=== PATIENT | female | born 1950 | race Caucasian/White ===

== ENCOUNTER 2018-05-28 06:00 | Inpatient (IN) ==
[2018-05-08 11:50] LABS: Basophils # (auto) 0.03 K/uL (0-0.2); Basophils % (auto) 0.3 %; Eosinophils # (auto) 0.39 K/uL (0-0.5); Eosinophils % (auto) 3.9 %; Hematocrit (blood only) 35.2 % (37-47); Hemoglobin 11.6 g/dL (12.0-16.0); Immature Granulocytes # (auto) 0.05 K/uL (0.00-0.02); Immature Granulocytes % (auto) 0.5 %; Lymphocytes # (auto) 1.83 K/uL (1.2-3.4); Lymphocytes % (auto) 18.1 %; Mean Corpuscular Volume 90.3 fL (80-100); Mean Platelet Volume 10.3 fL (7.4-10.4); Monocytes # (auto) 0.76 K/uL (0.11-0.59); Monocytes % (auto) 7.5 %; Neutrophils # (auto) 7.04 K/uL (1.4-6.5); Neutrophils % (auto) 69.7 %; Platelet Count 328 K/uL (130-400); RDW Coefficient of Variation 13.5 % (11.5-14.5); RDW Standard Deviation 44.7 fL (36.4-46.3)
--- NOTE | 2018-05-08 11:54 | PAT Medication Instructions ---
Medication Instructions Date of Service May 08, 2018 Home Medications alprazolam 1 - 2 tab PO BID NEEDED atorvastatin 20 mg PO QAM cranberry fruit concentrate [Azo] 2 tab PO QAM docusate sodium [Dulcolax] 2 tab PO QPM hydroxyzine HCl 1 - 2 tab PO HS NEEDED lisinopril-hydrochlorothiazide 1 tab PO QAM pantoprazole 40 mg PO BID venlafaxine 150 mg PO QAM STOP taking 2 weeks before surgery cranberry fruit concentrate [Azo] 2 tab PO QAM DO NOT take the morning of surgery lisinopril-hydrochlorothiazide 1 tab PO QAM Take morning of surgery With a small sip of water, OTHERWISE NOTHING TO EAT OR DRINK AFTER MIDNIGHT: alprazolam 1 - 2 tab PO BID NEEDED (stop 4 hours before surgery) atorvastatin 20 mg PO QAM pantoprazole 40 mg PO BID venlafaxine 150 mg PO QAM Take evening before surgery alprazolam 1 - 2 tab PO BID NEEDED docusate sodium [Dulcolax] 2 tab PO QPM hydroxyzine HCl 1 - 2 tab PO HS NEEDED pantoprazole 40 mg PO BID Other Notes If you have any questions please call us at [phone] or [phone] or [phone] or [phone]
--- NOTE | 2018-05-08 11:54 | Anesthesiology Consultation ---
Date of Service May 08, 2018 Assessment & Plan (1) Encounter for pre-operative examination: Chart Review Chart Review: Acceptable Risk for Surgery and Patient seen in Pre Admission Testing Consults Requested none Saw PCP on 04/20, who stated "There is no medical contraindication for the proposed surgery and anesthesia." K+ was pending at that time due to diuretic, but came back normal at our visit. Teaching & Discussion Pre-Anesthesia Teaching/Discussion Notes: Instructed NPO after midnight before surgery, except medications with 15 cc of water. Medication instructions provided according to the PAT guidelines. History Surgery Operation Date: 05/28/18 07:00 Proposed Procedures p Right Total Knee Arthroplasty - Vern Kunz MD Height/Weight Height: 5 ft 5 in Weight: 78.7 kg Allergies Allergy/AdvReac Type Severity Reaction Status Date / Time No Known Allergies Allergy Verified 05/04/18 10:40 Medications Home Medications Medication Instructions Recorded Confirmed Last Taken alprazolam 1 - 2 tab PO BID PRN 05/08/18 05/08/18 Unknown atorvastatin 20 mg PO QAM 05/08/18 05/08/18 Unknown cranberry fruit concentrate [Azo 2 tab PO QAM 05/08/18 05/08/18 Unknown Cranberry] docusate sodium [Dulcolax Stool 2 tab PO QPM 05/08/18 05/08/18 Unknown Softener (dss)] hydroxyzine HCl 1 - 2 tab PO HS PRN 05/08/18 05/08/18 Unknown lisinopril-hydrochlorothiazide 1 tab PO QAM 05/08/18 05/08/18 Unknown pantoprazole 40 mg PO BID 05/08/18 05/08/18 Unknown venlafaxine 150 mg PO QAM 05/08/18 05/08/18 Unknown Past Medical History Medical History Anxiety GERD (gastroesophageal reflux disease) Hyperlipidemia Hypertension Osteoarthritis Past Surgical History Surgical History History of arthroscopy RIGHT KNEE History of bladder suspension procedure AP REPAIR WITH BLADDER TACKING History of hysterectomy Past Anesthesia History No Hx of Anesthesia Complications and No Family Hx of Anesthesia Complications History of PONV No Motion Sickness Screening History of Motion Sickness: Yes Social History Smoking Status: Never smoker Do You Dip or Chew Tobacco: No Hx Alcohol Use: No Alcohol Intake Frequency Comment: 0 Hx Substance Use: No substance use type: does not use Exercise / Class Metabolic Activity II 4-5 Yardwork/Stairs/Walk up hill (Limited due to knee pain, but still tends to her house. Able to climb FOS. Denies SOB or CP. ) Review of Systems Patient denies chest pain, shortness of breath, dyspnea on exertion, cough, wheezing, palpitations. +joint pain +acid reflux (partially controlled by meds) Physical Exam Vital Signs BP: 123/76 P: 78 R: 16 T: 97.9 SPO2: 97% on RA ENMT Thyromental Distance: < 3.5 Finger Breadths (3) Mallampati Class: III Neck normal visual inspection and trachea midline Respiratory normal respiratory effort Auscultation: lungs clear to auscultation bilaterally Cardiovascular Rate/Rhythm: regular rate and regular rhythm Heart Sounds: no murmur Vessels: no carotid bruit Psychiatric Orientation: alert and oriented x 3 Testing Electrocardiogram Date: 05/08/18 Findings: + NSR @ (82) Sinus arrhythmia with 1st degree A-V block. RBBB. Left anterior fascicular block. Bifascicular block When compared to EKG from 07/12/17, 1st degree A-V block is now present. Otherwise, no significant change is present. Chest X-Ray Date: 05/08/18 Findings: + NAD FINDINGS: Atherosclerosis of the aortic arch. Cardiac silhouette normal in size. Lungs and pleural spaces clear. Mild to moderate dextrocurvature of the thoracic spine. Upper abdomen normal. IMPRESSION: 1. No acute cardiopulmonary disease. Laboratory Results 05/08/18 11:21 05/08/18 11:21 Blood Type A Positive 05/08/18 11:21 Antibody Screen NEGATIVE 05/08/18 11:21 PT 10.3 Seconds (9.0-12.0) 05/08/18 11:21 INR 1.0 (0.9-1.1) 05/08/18 11:21 APTT 24.7 Seconds (21.0-31.0) 05/08/18 11:21 Hemoglobin A1c 5.5 % (4.5-5.6) 05/08/18 11:21 Urine Color Yellow 05/08/18 Unknown Urine Appearance Clear (Clear) 05/08/18 Unknown Urine pH 5.0 (4.5-7.5) 05/08/18 Unknown Ur Specific [place] 1.019 (1.000-1.030) 05/08/18 Unknown Urine Protein Negative (Negative) 05/08/18 Unknown Urine Glucose (UA) Negative (Negative) 05/08/18 Unknown Urine Ketones Negative (Negative) 05/08/18 Unknown Urine Nitrite Negative (Negative) 05/08/18 Unknown Ur Leukocyte Esterase Negative (Negative) 05/08/18 Unknown 05/08/18 Unknown Urine Culture - Final Urine,Clean Catch No growth - less than 1,000 colonies/mL.
[2018-05-08 11:58] LABS: Partial Thromboplastin Time 24.7 Seconds (21.0-31.0); Prothrombin Time 10.3 Seconds (9.0-12.0)
[2018-05-08 12:28] LABS: Estimated Average Glucose 111 mg/dl
--- NOTE | 2018-05-08 12:49 | XRay Report ---
XR chest Pre-admission PA/Lat CLINICAL HISTORY: 68 years-old Female presenting with preoperative assessment. TECHNIQUE: PA and lateral views of the chest were obtained. COMPARISON: None. FINDINGS: Atherosclerosis of the aortic arch. Cardiac silhouette normal in size. Lungs and pleural spaces clear . Mild to moderate dextrocurvature of the thoracic spine. Upper abdomen normal. IMPRESSION: 1. No acute cardiopulmonary disease. Electronically signed by: Enrique Pacheco M.D. 05/08/2018 12:48 PM
[2018-05-08 13:04] LABS: Albumin Level 3.8 gm/dl (3.4-5.0); BUN Creatinine Ratio 38.4 (10-20); Calcium 9.1 mg/dl (8.5-10.1); Creatinine Clr Calc Pharmacy 74.4 ml/min; Est GFR (African American) 95.8; Est GFR (Non-African American) 82.7; Potassium 4.1 mmol/L (3.5-5.1)
[2018-05-08 13:20] LABS: Appearance Urine Clear (Clear); Bilirubin Urine Negative (Negative); Color Urine Yellow; Glucose Urine UA Negative (Negative); Ketones Urine Negative (Negative); Leukocyte Esterase Urine Negative (Negative); Nitrite Urine Negative (Negative); Protein Urine Negative (Negative); Specific Gravity Urine 1.019 (1.000-1.030); Urobilinogen Urine Negative (Negative)
--- NOTE | 2018-05-27 13:08 | History and Physical Report ---
DATE OF ADMISSION: 05/28/2018 CHIEF COMPLAINT: Right knee pain. HISTORY OF PRESENT ILLNESS: The patient is a 68-year-old female with known osteoarthritis about her right knee. She has had several previous corticosteroid injections. She continues to have pain and disability with activities of daily living and now desires to proceed with right total knee arthroplasty. PAST MEDICAL HISTORY: Hypertension, hypercholesterolemia, depression, kidney stones, acid reflux. PAST SURGICAL HISTORY: Right knee arthroscopy, bladder surgery, hysterectomy, D and C x2. MEDICATIONS: Xanax 0.5 mg daily p.r.n. anxiety, atorvastatin 20 mg daily, Protonix 40 mg daily, lisinopril/HCTZ 20/12.5 daily, hydroxyzine HCl 25 mg 4 times daily, Effexor XR 150 mg daily. ALLERGIES: No known drug allergies. SOCIAL HISTORY AND REVIEW OF SYSTEMS: Noncontributory. PHYSICAL EXAMINATION: GENERAL: Well-nourished, well-developed elderly female who appears her stated age. HEENT: Normocephalic, atraumatic, extraocular movements intact, oropharynx pink and moist. NECK: Supple without adenopathy. LUNGS: Clear to auscultation bilaterally. HEART: Regular rate and rhythm. ABDOMEN: Soft, nontender, nondistended. EXTREMITIES: The upper extremities are within normal limits. The right knee has a slight valgus alignment. She complains primarily lateral compartment pain. Her range of motion is approximately 0-120 degrees. X-RAYS: X-rays were reviewed. She has a slight valgus aligned knee. She has near bone on bone arthritis of the lateral compartment with complete loss of the joint space. ASSESSMENT: Right knee degenerative joint disease. PLAN: Risks versus benefits were discussed, consent was obtained. The patient's primary care physician is Dr. Powers from [place]. Will proceed with right total knee arthroplasty as indicated.
[~2018-05-28 06:00] MED LIST: ACETAMINOPHEN 500 MG TAB PO SCH; CEFAZOLIN 1000MG 1,000 MG/7.5 ML SYR IV SCH; CEFAZOLIN 2000MG 2,000 MG/15 ML SYR IV SCH; CeleBREX 200 MG CAP PO SCH; FAMOTIDINE 20 MG TAB PO SCH; GABAPENTIN 300 MG PO SCH; METOCLOPRAMIDE HCL 10 MG TABLET PO SCH; OXYCODONE HCL 10 MG TABCR (OXYCONTIN) PO SCH; ROPIVACAINE 0.5% HCL/PF 150 MG, BUPIVACAINE 0.5% MPF 30 ML, EPINEPHrine 30MG/30ML (OR U... INFIL SCH; TRANEXAMIC ACID 1,000 MG **IV Pre-op IV SCH; dexAMETHasone 4 MG TAB PO SCH
[2018-05-28] MEDS ORDERED: ROPIVACAINE 0.5% 5 MG/ML 30 ML VIAL ONE (06:24)
[2018-05-28] MEDS ORDERED: BUPIVACAINE 0.5 % 5 MG/1 ML PF 10ML VIAL ONE (06:24)
[2018-05-28] MEDS ORDERED: EPINEPHrine INJ 1 MG/ML AMP ONE (06:25)
[2018-05-28] MEDS ORDERED: TRANEXAMIC ACID 1,000 MG **IV Intra-op IV SCH (06:30)
[2018-05-28] MEDS: LR 500ML BOLUS, THEN 15ML/HR IV SCH ×2 (06:36→16:59)
[2018-05-28] MEDS ORDERED: ORTHO JOINT ANESTHETIC ONE (07:02)
[2018-05-28] MEDS ORDERED: BACITRACIN INJ 50,000 UNIT VIAL ONE (07:02)
[2018-05-28] MEDS ORDERED: POVIDONE-IODINE OP SOLN 30 ML BTL ONE (07:02)
--- NOTE | 2018-05-28 07:02 | History & Physical Bridge Note ---
Date of Service May 28, 2018 History & Physical Bridge Note I have examined the patient, reviewed the History & Physical and in the interval since the performance of the History & Physical I have noted the following changes of clinical significance: no changes noted
[2018-05-28] MEDS ORDERED: MIDAZOLAM HCL 1 MG/ML 2ML VIAL ONE (07:21)
[2018-05-28] MEDS ORDERED: LABETALOL HCL IV 5 MG/ML 20ML IV PRN (07:30)
[2018-05-28] MEDS ORDERED: PHENYLEPHRINE 100MCG/ML 5ML SYR IV PRN (07:30)
[2018-05-28] MEDS ORDERED: MEPERIDINE HCL 25 MG/ML CARP IV PRN (07:30)
[2018-05-28] MEDS ORDERED: fentaNYL citrate 100 MCG/2 ML VIAL IV PRN (07:30)
[2018-05-28] MEDS ORDERED: HYDROmorphone INJ 1 MG/ML SYRINGE IV PRN (07:30)
[2018-05-28] MEDS ORDERED: ATROPINE SULFATE 0.1 MG/ML 5ML SYR IV PRN (07:30)
[2018-05-28] MEDS ORDERED: ONDANSETRON INJ 2 MG/ML 2 ML VIAL IV PRN ×2 (07:30→10:53)
[2018-05-28] MEDS ORDERED: ePHEDrine sulfate 50 MG/ML AMP IV PRN (07:30)
--- NOTE | 2018-05-28 09:15 | Operative Report ---
Post Operative Report Date of Surgery May 28, 2018 Pre & Post Diagnosis Operation Date: 05/28/18 08:20 Pre-Op Diagnosis: RIGHT KNEE OSTEOARTHRITIS Post-Op Diagnosis: RIGHT KNEE OSTEOARTHRITIS Procedure Operation Date: 05/28/18 08:20 Actual Procedures p Right Total Knee Arthroplasty(Right) - Vern Kunz MD Surgeon Vern Kunz MD Signal Inspector nacho Estimated Blood Loss 10 Findings Consistent with Post-Op Diagnosis Specimens Bone fragments Anesthesia Type Spinal Complications none Disposition Accompanied Patient To Recovery: No Disposition: Recovery Room Indications Knee pain Description of Procedure Patient's right leg was prepped and draped in usual sterile manner. The limb was exsanguinated with an Esmarch bandage and tourniquet inflated to 300 mils of mercury. Longitudinal incision was made over the knee. Changes tissue was sharply dissected electrocautery used for hemostasis. A medium parapatellar incision was made the patella was everted and the fat was removed It was removed and the medial face of the tibia was cleared of soft tissue using the Bovie and a Conner elevator. Proximal to the osteotomy was carried out using the intramedullary guide bone fragment was removed. Attention was turned to the femur where a drill was used to get access to the femoral canal. Distal femoral cut was made with an 8 mm cut. Size 3 femur was chosen size to be used in the anterior shift was utilized and the distal femoral chamfer cuts were made. These bone fragments were removed and the notch was cut using the appropriate guide. Lamina grain trader was used to gain access to the posterior elements of the knee and the remnants were removed as well as the remnants of the the lamina grain trader was removed trial femur was impacted in position in the drill for the pegs was brought osteotome was used to present the tibia where a size 3 tibial component was chosen size to be used. The tibial baseplate was placed and was well aligned and the preparation for the stem was carried out using the drill and punch. Trial reduction was carried out and a size 11 poly- was chosen size to be used. The was able to be brought to full extension with good collateral stability. The patella was reamed using the patellar reamer and the patella drill was used to prepare the holes for the pegs. Trial 36 patella was chosen. All trials were removed the knee was thoroughly irrigated joint mix was injected and the final components were cemented into position. [place] help in position of extension while cement hardened after removal of excess cement. Following cementation Betadine soap was utilized the remainder of the periarticular joint mix was injected the knee was finally irrigated with pulsatile irrigation and closed in layers #1 Vicryl was used to close the extensor mechanism tense tissue was closed using 0 Dexon skin was closed with 0 plain. Sterile dressing of Adaptic 4 x 4's sterile Webril umbilicus applied. A Conner was utilized to a portion of the case including positioning prepping draping surgical systems wound closure and dressing application. I attest to the content of the Intraoperative Record and any orders documented therein. Any exceptions are noted below.
[2018-05-28] MEDS ORDERED: PROPOFOL IV EMULSION 10 MG/ML 20 ML VIAL IV ONE (09:21)
--- NOTE | 2018-05-28 10:10 | Anesthesiology Progress Note ---
Date of Service May 28, 2018 Anesthesia Post Procedure Vital Signs Vital Signs: Temp Pulse Pulse Resp BP Pulse Ox 05/28/18 10:00 71 16 104/54 L 100 05/28/18 09:53 36.6 C 82 16 119/81 100 05/28/18 06:20 36.9 C 74 20 128/68 99 Pain Intensity Right Knee: Pain Intensity: 4 Notes Mental Status: alert / awake / arousable Patient Amnestic to Procedure: Yes Nausea / Vomiting: adequately controlled Pain: adequately controlled Airway Patency, RR, SpO2: stable & adequate BP & HR: stable & adequate Hydration State: stable & adequate Neuraxial Anesthesia: was administered and sensory block is resolving Anesthetic Complications: no major complications apparent and Pt Satisfied with anesthetic care
--- NOTE | 2018-05-28 10:22 | XRay Report ---
XR knee RT 2V routine HISTORY: 68 years-old Female post-op TKA right knee total joint arthroplasty. History of degenerativ e joint disease. COMPARISON: None available TECHNIQUE: 2 views of the right knee FINDINGS: Right knee total joint arthroplasty with patellar resurfacing. Alignment is satisfactory. Expected po stsurgical soft tissue swelling with deep tissue air and surgical drainage catheter. No acute fractur e or retained foreign body. IMPRESSION: Right knee total joint arthroplasty and patella resurfacing with satisfactory alignment. The above report was generated using voice recognition software. It may contain grammatical, syntax o r spelling errors. Electronically signed by: Adonay Cordon M.D. 05/28/2018 10:21 AM
[2018-05-28] MEDS ORDERED: ALUMINUM/MAGNESIUM SUSP 30 ML UDC PO PRN (10:53)
[2018-05-28] MEDS ORDERED: METOCLOPRAMIDE HCL INJ 5 MG/ML 2 ML VIAL IV PRN (10:53)
[2018-05-28] MEDS ORDERED: MAGNESIUM HYDROXIDE SUSP 30 ML UDC PO PRN (10:53)
[2018-05-28] MEDS: FERROUS GLUCONATE 324 MG TAB PO SCH ×2 (12:20→17:47)
[2018-05-28] MEDS: KETOROLAC TROMETHAMINE 15 MG/ML VIAL IV SCH ×2 (12:20→17:48)
[2018-05-28] MEDS: SODIUM CHLORIDE 0.9% 1000ML 1,000 ML IV SCH ×2 (13:22→22:10)
[2018-05-28] MEDS: ACETAMINOPHEN 500 MG TAB PO SCH ×2 (14:32→22:11)
[2018-05-28] MEDS: CEFAZOLIN 2000MG 2,000 MG/15 ML SYR IV SCH (16:33)
[2018-05-28] MEDS: OXYCODONE HCL IR 5 MG TAB (IMMEDIATE RELEASE) PO PRN ×2 (17:52→21:27)
[2018-05-28] MEDS: DOCUSATE SODIUM 100 MG CAP PO SCH (21:26)
[2018-05-28] MEDS: ASPIRIN 81 MG ECTAB PO SCH (21:26)
[2018-05-28] MEDS: PANTOprazole 40 MG TAB PO SCH (21:26)
[2018-05-29] MEDS: KETOROLAC TROMETHAMINE 15 MG/ML VIAL IV SCH ×2 (00:07→06:06)
[2018-05-29] MEDS: CEFAZOLIN 2000MG 2,000 MG/15 ML SYR IV SCH (00:08)
[2018-05-29] MEDS: ACETAMINOPHEN 500 MG TAB PO SCH ×3 (06:12→22:16)
[2018-05-29 06:40] LABS: Hemoglobin 9.6 g/dL (12.0-16.0); Mean Platelet Volume 9.7 fL (7.4-10.4); Platelet Count 352 K/uL (130-400); RDW Coefficient of Variation 13.2 % (11.5-14.5); RDW Standard Deviation 42.8 fL (36.4-46.3); Red Blood Count 3.37 M/uL (4.2-5.4); White Blood Count 18.73 K/uL (4.8-10.8)
[2018-05-29 07:18] LABS: BUN Creatinine Ratio 24.4 (10-20); Calcium 7.9 mg/dl (8.5-10.1); Creatinine Clr Calc Pharmacy 57.1 ml/min; Est GFR (African American) 68.2; Est GFR (Non-African American) 58.9
--- NOTE | 2018-05-29 07:42 | Anesthesiology Progress Note ---
Date of Service May 29, 2018 Anesthesia Post Procedure Vital Signs Vital Signs: Temp Pulse Pulse Resp BP Pulse Ox 05/29/18 03:28 36.7 C 75 16 99/63 L 96 05/28/18 23:05 36.6 C 78 16 108/66 95 05/28/18 19:51 36.8 C 80 18 110/69 96 05/28/18 16:03 36.9 C 70 18 104/64 97 05/28/18 13:45 36.5 C 71 15 107/65 96 05/28/18 12:41 36.7 C 77 18 113/73 98 05/28/18 11:12 36.5 C 72 17 118/73 97 05/28/18 10:45 36.5 C 72 15 111/74 97 05/28/18 10:30 72 16 102/60 98 05/28/18 10:20 71 16 99/59 L 98 05/28/18 10:10 36.5 C 70 16 100/54 L 98 05/28/18 10:00 71 16 104/54 L 100 05/28/18 09:53 36.6 C 82 16 119/81 100 Pain Intensity Right Knee: Pain Intensity: 5 Notes Mental Status: alert / awake / arousable and participated in evaluation Patient Amnestic to Procedure: Yes Nausea / Vomiting: adequately controlled Pain: adequately controlled Airway Patency, RR, SpO2: stable & adequate BP & HR: stable & adequate Hydration State: stable & adequate Neuraxial Anesthesia: was administered and sensory block resolved Anesthetic Complications: no major complications apparent
[2018-05-29] MEDS ORDERED: dexAMETHasone 10 MG in SYRINGE 0 ML IV SCH (08:00)
[2018-05-29] MEDS: FERROUS GLUCONATE 324 MG TAB PO SCH ×3 (08:27→17:03)
[2018-05-29] MEDS: DOCUSATE SODIUM 100 MG CAP PO SCH ×2 (08:28→20:38)
[2018-05-29] MEDS: MULTIVITAMIN TAB PO SCH (08:28)
[2018-05-29] MEDS: VENLAFAXINE HCL XR 150 MG CAPXR PO SCH (08:28)
[2018-05-29] MEDS: ASPIRIN 81 MG ECTAB PO SCH ×2 (08:28→20:38)
[2018-05-29] MEDS: ATORVASTATIN 20 MG TAB PO SCH (08:29)
[2018-05-29] MEDS: PANTOprazole 40 MG TAB PO SCH ×2 (08:29→20:38)
[2018-05-29] MEDS: LISINOPRIL/HCTZ 20/12.5MG 1 TAB TAB PO SCH (08:32)
[2018-05-29] MEDS: OXYCODONE HCL IR 5 MG TAB (IMMEDIATE RELEASE) PO PRN ×4 (08:35→21:09)
[2018-05-29] MEDS: MoRPHine SULFATE 2 MG/ML CARP IV PRN ×3 (15:17→22:40)
[2018-05-29] MEDS: CeleBREX 200 MG CAP PO SCH (20:38)
[2018-05-30] MEDS: OXYCODONE HCL IR 5 MG TAB (IMMEDIATE RELEASE) PO PRN ×5 (01:44→22:34)
--- NOTE | 2018-05-30 02:36 | Operative Report ---
DATE OF OPERATION: 05/29/2018 CHIEF COMPLAINT: Right knee pain. The patient is status post right knee replacement done yesterday. She is complaining of very little discomfort, was able to participate in physical therapy today. PHYSICAL EXAMINATION: Reveals dressing to be intact. Hemovac drain in place. Minimal drainage. LABORATORY DATA: Hemoglobin 9.6. ASSESSMENT: Total knee, doing well. PLAN: Remove drain tonight, dressing change tomorrow. One physical therapy session tomorrow and then discharge. I attest to the content of the Intraoperative Record and any orders documented therein. Any exception s are noted below.
[2018-05-30] MEDS: ACETAMINOPHEN 500 MG TAB PO SCH ×3 (06:14→22:29)
--- NOTE | 2018-05-30 07:39 | Orthopedic Progress Note ---
Date of Service May 30, 2018 Assessment & Plan (1) S/P total knee arthroplasty: POD#2 Rt TKA -Pain management -DVT prophylaxis -PT/OT -Hgb yesterday 9.6. Patient feeling a little unsteady on her feet, will check cbc this AM -D/C planning-home with home health, possibly later today if feeling better and PT goes well. Subjective Patient resting comfortably in bed. Had a lot of pain overnight, states this is improving. Feels unsteady on her feet. Hgb yesterday 9.6. Will check CBC this am. Denies chest pain, sob, calf pain. Physical Exam 2 Vital Signs (Past 24 Hours): Last Vital Signs Temp 36.4 C L 05/30/18 06:51 Pulse 70 05/30/18 06:51 Resp 18 05/30/18 06:51 BP 121/71 05/30/18 06:51 Pulse Ox 97 05/30/18 06:51 Physical Exam: Dressing c/d/i, drain has been removed. No calf tenderness. Toes mobile, sensation intact. Results & Data Laboratory Results H & H 05/08/18 05/29/18 Range/Units 11:21 06:26 Hgb 11.6 L 9.6 L (12.0-16.0) g/dL Hct 35.2 L 30.0 L (37-47) % Coagulation 05/08/18 Range/Units 11:21 INR 1.0 (0.9-1.1)
[2018-05-30 07:45] LABS: Basophils # (auto) 0.02 K/uL (0-0.2); Basophils % (auto) 0.1 %; Eosinophils # (auto) 0.03 K/uL (0-0.5); Eosinophils % (auto) 0.2 %; Hematocrit (blood only) 29.3 % (37-47); Hemoglobin 9.6 g/dL (12.0-16.0); Immature Granulocytes % (auto) 0.7 %; Lymphocytes # (auto) 2.34 K/uL (1.2-3.4); Lymphocytes % (auto) 16.9 %; Mean Corpuscular Volume 89.1 fL (80-100); Mean Platelet Volume 9.6 fL (7.4-10.4); Monocytes # (auto) 1.56 K/uL (0.11-0.59); Monocytes % (auto) 11.3 %; Neutrophils % (auto) 70.8 %; Platelet Count 343 K/uL (130-400); RDW Coefficient of Variation 13.6 % (11.5-14.5); RDW Standard Deviation 44.2 fL (36.4-46.3); Red Blood Count 3.29 M/uL (4.2-5.4); White Blood Count 13.85 K/uL (4.8-10.8)
[2018-05-30 07:47] LABS: Mean Corpuscular Hgb Conc 32.8 g/dL (32-36)
[2018-05-30] MEDS: PANTOprazole 40 MG TAB PO SCH ×2 (09:13→20:30)
[2018-05-30] MEDS: DOCUSATE SODIUM 100 MG CAP PO SCH ×2 (09:13→20:30)
[2018-05-30] MEDS: ASPIRIN 81 MG ECTAB PO SCH ×2 (09:13→20:30)
[2018-05-30] MEDS: FERROUS GLUCONATE 324 MG TAB PO SCH ×3 (09:13→18:06)
[2018-05-30] MEDS: MULTIVITAMIN TAB PO SCH (09:13)
[2018-05-30] MEDS: VENLAFAXINE HCL XR 150 MG CAPXR PO SCH (09:14)
[2018-05-30] MEDS: CeleBREX 200 MG CAP PO SCH ×2 (09:14→20:30)
[2018-05-30] MEDS: ATORVASTATIN 20 MG TAB PO SCH (09:15)
[2018-05-30] MEDS: LISINOPRIL/HCTZ 20/12.5MG 1 TAB TAB PO SCH (09:15)
[2018-05-30] MEDS: MoRPHine SULFATE 2 MG/ML CARP IV PRN (13:19)
[2018-05-31] MEDS: MoRPHine SULFATE 2 MG/ML CARP IV PRN (00:04)
[2018-05-31] MEDS: ACETAMINOPHEN 500 MG TAB PO SCH (06:15)
[2018-05-31] MEDS: MULTIVITAMIN TAB PO SCH (07:44)
[2018-05-31] MEDS: FERROUS GLUCONATE 324 MG TAB PO SCH ×2 (07:44→12:57)
[2018-05-31] MEDS: ATORVASTATIN 20 MG TAB PO SCH (07:44)
[2018-05-31] MEDS: DOCUSATE SODIUM 100 MG CAP PO SCH (07:44)
[2018-05-31] MEDS: ASPIRIN 81 MG ECTAB PO SCH (07:45)
[2018-05-31] MEDS: PANTOprazole 40 MG TAB PO SCH (07:45)
[2018-05-31] MEDS: VENLAFAXINE HCL XR 150 MG CAPXR PO SCH (07:45)
[2018-05-31] MEDS: CeleBREX 200 MG CAP PO SCH (07:45)
--- NOTE | 2018-05-31 07:45 | Orthopedic Progress Note ---
Date of Service May 31, 2018 Assessment & Plan (1) S/P total knee arthroplasty: POD#3 Rt TKA -Pain management -DVT prophylaxis -PT/OT -Hgb yesterday 9.6. Patient feeling much better today than yesterday. -D/C planning-home with home health after PT today. Subjective Patient sitting comfortably in bedside chair. Had a lot of pain yesterday and felt unsteady on her feet. Hgb yesterday 9.6. She is feeling much better this morning. No complaints. Denies chest pain, sob, calf pain. Physical Exam 2 Vital Signs (Past 24 Hours): Last Vital Signs Temp 36.5 C 05/31/18 06:14 Pulse 76 05/31/18 06:14 Resp 16 05/31/18 06:14 BP 105/60 05/31/18 06:14 Pulse Ox 95 05/31/18 06:14 Physical Exam: Dressing c/d/i, toes mobile, sensation intact. N/V intact. No calf tenderness
[2018-05-31] MEDS: LISINOPRIL/HCTZ 20/12.5MG 1 TAB TAB PO SCH (07:48)
[2018-05-31] MEDS: OXYCODONE HCL IR 5 MG TAB (IMMEDIATE RELEASE) PO PRN ×2 (07:50→12:58)
--- NOTE | 2018-06-10 09:04 | Discharge Summary ---
CHIEF COMPLAINT: Right knee pain. Please see complete history and physical examination. HOSPITAL COURSE: The patient underwent right total knee arthroplasty without complication. She tolerated the procedure well and was discharged to the recovery room in stable condition. Her postoperative course was relatively uneventful. Her postoperative pain was reasonably well controlled with a combination of spinal anesthesia, adductor canal block, intraoperative joint injection, IV, and oral pain medications. She was started on aspirin for DVT prophylaxis. She also utilized BARBARA stockings and SCDs for additional prophylaxis. Her H&H was stable and did not require transfusion. Her surgical drain and dressing were discontinued on postoperative day 2, a new postop dressing was applied which will remain in place for approximately 7 days postoperative. She tolerated postoperative physical therapy reasonably well where she was ambulating and bending her knee appropriately. She was discharged home on postop day #3. She will continue her physical therapy at home. She will continue her aspirin for DVT prophylaxis and follow up in our office in approximately 10-14 days for her initial postop evaluation.
--- NOTE | 2018-06-19 10:57 | Operative Report ---
DATE OF OPERATION: 05/28/2018 PREOPERATIVE DIAGNOSIS: Osteoarthritis, right knee. POSTOPERATIVE DIAGNOSIS: Osteoarthritis, right knee. PROCEDURE: Right total knee arthroplasty. SURGEON: Vern Kunz MD MODEL TECHNICIAN: Derick Joseph PA-C. Mr. Joseph was utilized for all portions of the case including positioning, prepping, draping, surgical assistance, wound closure and dressing application. ANESTHESIA: Spinal. COMPLICATIONS: None. SPECIMENS: Femoral size 3, tibia size 3, tibial poly 11, patella 36. CONDITION: Recovery room stable. OPERATION AND FINDINGS: Following induction of spinal anesthesia, the patient's right leg was prepped and draped in the usual sterile manner. Limb was exsanguinated with an Esmarch bandage and tourniquet was inflated to 350 mmHg. A longitudinal incision was made anteriorly. Subcutaneous tissue was sharply dissected. Electrocautery was used for hemostasis. Prepatellar bursa was incised and median parapatellar incision was performed. Patella was everted and the knee was flexed. Fat pad was removed to aid in visualization and the anterior and posterior cruciate ligaments were removed. The medial face of the tibia was cleared of soft tissue first with a Bovie and a Conner elevator. This tissue was retracted posteriorly using a blunt Hohmann. A Samano retractor was used to expose the synovium above on the anterior aspect of the femur and this was removed down to bone. The PSI guide was placed on the distal femur and two pins were placed anteriorly and kept in position and two additional pins were placed distally and removed. The distal femoral cutting block was placed in position and the distal femoral cut was used in the +0 setting. Next, the cutting block was removed and the femoral 3 block was placed in the distal end of the femur. Care was taken to ensure appropriate external rotation and feeler gauge was used to ensure no notching would occur. The femoral block was centered on the distal femur and in the medial and lateral direction and was fixed using two bone screws. The gold pins were then removed. The oscillating saw was used to create the bone cuts and the distal femoral cutting block was removed and the reciprocating saw was used to further trim the femoral cuts as well as a deep in the area for the trochlear groove. Next, posterior condyle remnants were removed. Following this, a meniscal clamp and knife were utilized to remove the anterior portion of both medial and lateral meniscus. The proximal tibia PSI guide was placed into position and the proximal tibial cutting guide was screwed into position. The extra medullary alignment guide was utilized to ensure appropriate alignment. The proximal tibia was cut and the proximal tibial cutting block was removed and this bone fragment was removed. The appropriate guide was used to perform the notch cut on the distal femur and a lamina airport planner and a cochlear knife were utilized to finish both medial and lateral meniscectomies to remove any remnants of the posterior or anterior cruciate ligaments. Following this, the distal femoral component was impacted into position and blunt Brenda was used to sublux the tibia anteriorly. The proximal tibia was sized and a 3 tibial tray was chosen as the size to be used. This was put into position and appropriate external rotation and a double check with extramedullary alignment guide was performed. The canal for the tibial stem was prepared first with a 17 mm drill and then the punch and a mallet and the trial tibial poly was placed. An 11 was chosen the size to be used. It was brought to extension and the patella was prepared with the patellar reamer. A 36 component was chosen the size to be used. The trial component was placed and knee was taken through a full range of motion and there was found to be no lateral subluxation of the tibia. No lateral release was required. The trials were all removed. The final components were obtained and assembled. Cement was mixed. The knee was thoroughly irrigated and the ortho mix was injected about the knee joint. The final components were cemented into position. After thoroughly suctioning and drying the bone ends, all excess cement was removed. The knee was held in extension while the cement hardened. The wound was irrigated and closed over a Hemovac drain. #1 Vicryl was used to close the extensor mechanism. Subcutaneous tissues closed using 0 Dexon. Skin was closed with tom. Sterile dressing of Adaptic, 4 x 4's, sterile Webril, and [place] was applied. The patient tolerated the procedure well. Due to the complex nature of the procedure, the entire surgery was performed with the operational assistance of Derick Joseph PA-C. The physician assistant, under direct supervision, was involved in the actual performance of all aspects of the surgical procedure including hemostasis, tissue retraction and incision, instrument management, patient positioning, and wound closure. I attest to the content of the Intraoperative Record and any orders documented therein. Any exception s are noted below.
== END 2018-05-31 13:59 | disposition home health service (06) | DRG 470 ==
LOC: ASU 06:00 → 3E 10:01

== ENCOUNTER 2022-03-13 05:15 | Observation (INO) ==
--- NOTE | 2022-02-11 15:41 | PAT Medication Instructions ---
Medication Instructions Date of Service February 11, 2022 Home Medications Medication Instructions Recorded acetaminophen 500 mg capsule 1,000 mg PO Q8H pain #60 caps 05/30/18 alprazolam 0.25 mg tablet 1 - 2 tab PO BID PRN atorvastatin 20 mg tablet 20 mg PO QAM cranberry fruit concentrate 250 mg chewable tablet (Azo Cranberry) 2 tab PO QAM docusate sodium 100 mg capsule (Dulcolax Stool Softener (docusate)) 2 tab PO QPM hydroxyzine HCl 25 mg tablet 1 - 2 tab PO HS PRN lisinopril 20 mg-hydrochlorothiazide 12.5 mg tablet 1 tab PO QAM pantoprazole 40 mg tablet,delayed release 40 mg PO BID venlafaxine 150 mg tablet,extended release 24 hr 150 mg PO QAM acetaminophen 500 mg capsule 1,000 mg PO Q8H anastrozole 1 mg tablet 1 mg PO QAM cholecalciferol (vitamin D3) 50 mcg (2,000 unit) capsule (Vitamin D3) 100 mcg PO QAM ASK your prescriber and surgeon anastrozole 1 mg tablet 1 mg PO QAM STOP taking 2 weeks before surgery cranberry fruit concentrate 250 mg chewable tablet (Azo Cranberry) 2 tab PO QAM DO NOT take the morning of surgery lisinopril 20 mg-hydrochlorothiazide 12.5 mg tablet 1 tab PO QAM cholecalciferol (vitamin D3) 50 mcg (2,000 unit) capsule (Vitamin D3) 100 mcg PO QAM Take morning of surgery With a small sip of water, OTHERWISE NOTHING TO EAT OR DRINK AFTER MIDNIGHT: alprazolam 0.25 mg tablet 1 - 2 tab PO BID PRN(if needed) atorvastatin 20 mg tablet 20 mg PO QAM pantoprazole 40 mg tablet,delayed release 40 mg PO BID venlafaxine 150 mg tablet,extended release 24 hr 150 mg PO QAM acetaminophen 500 mg capsule 1,000 mg PO Q8H Take evening before surgery alprazolam 0.25 mg tablet 1 - 2 tab PO BID PRN(if needed) docusate sodium 100 mg capsule (Dulcolax Stool Softener (docusate)) 2 tab PO QPM hydroxyzine HCl 25 mg tablet 1 - 2 tab PO HS PRN(if needed) pantoprazole 40 mg tablet,delayed release 40 mg PO BID acetaminophen 500 mg capsule 1,000 mg PO Q8H Other Notes If you have any questions please call us at [phone] or [phone] or [phone] or [phone]
--- NOTE | 2022-02-13 13:50 | Anesthesiology Consultation ---
Date of Service February 13, 2022 Assessment & Plan (1) Encounter for pre-operative examination: Plan - will attempt to obtain most recent cardiology office note and pacemaker report. - cardiology clearance letter 02/05/22: "...low to moderate risk..." - pacemaker: William. - R TKA 05/28/18: SAB L3-L4 1 attempt + PNB. Chart Review Chart Review: Pending: Refer to Additional Notes / Consult section and Patient seen in Pre Admission Testing Teaching & Discussion Pre-Anesthesia Teaching/Discussion Notes: Instructed NPO after midnight before surgery, except medications with 15 cc of water. Medication instructions provided according to the PAT guidelines. History Surgery Operation Date: 03/13/22 07:15 Proposed Procedures p Left Total Knee Arthroplasty - Moises Posey MD Height/Weight Height: 5 ft 4 in Weight: 70.3 kg Allergies Allergy/AdvReac Type Severity Reaction Status Date / Time No Known Allergies Allergy Verified 02/11/22 11:38 Medications Home Medications Medication Instructions Recorded Confirmed Last Taken alprazolam 0.25 mg tablet 1 - 2 tab PO BID PRN Anxiety 05/08/18 02/11/22 05/27/18 12:00 atorvastatin 20 mg tablet 20 mg PO QAM 05/08/18 02/11/22 05/28/18 04:00 cranberry fruit concentrate 250 mg 2 tab PO QAM 05/08/18 02/11/22 05/14/18 chewable tablet (Azo Cranberry) docusate sodium 100 mg capsule 2 tab PO QPM 05/08/18 02/11/22 05/27/18 20:00 (Dulcolax Stool Softener (docusate)) hydroxyzine HCl 25 mg tablet 1 - 2 tab PO HS PRN Sleep 05/08/18 02/11/22 05/27/18 20:00 lisinopril 20 1 tab PO QAM 05/08/18 02/11/22 05/27/18 08:00 mg-hydrochlorothiazide 12.5 mg tablet pantoprazole 40 mg tablet,delayed 40 mg PO BID 05/08/18 02/11/22 05/28/18 04:00 release venlafaxine 150 mg tablet,extended 150 mg PO QAM 05/08/18 02/11/22 05/28/18 04:00 release 24 hr acetaminophen 500 mg capsule 1,000 mg PO Q8H pain #60 caps 05/30/18 02/11/22 Unknown anastrozole 1 mg tablet 1 mg PO QAM 02/11/22 02/11/22 Unknown cholecalciferol (vitamin D3) 50 100 mcg PO QAM 02/11/22 02/11/22 Unknown mcg (2,000 unit) capsule (Vitamin D3) Past Medical History Medical History (Updated 02/13/22 @ 16:26 by Shonda Edwards PA-C) Anxiety Cancer LEFT BREAST-04/2021-no limb restriction Depression GERD (gastroesophageal reflux disease) controlled, stable per pt Hyperlipidemia Hypertension controlled, stable per pt Kidney stones Pacemaker William, PLACED 07/2020-F/U DR GAVIRIA Scoliosis Patient denies h/o stroke, seizures, heart attack, heart failure, DM, blood clots or blood transfusions. Exercise / Class Metabolic Activity III < 4 Walking/Shop/Light housework (denies CP or SOB with usual activities, only has 6 steps in home) Past Family History Family History Other No known health problems Past Surgical History Surgical History (Updated 02/13/22 @ 14:05 by Shonda Edwards PA-C) Cardiac pacemaker William History of arthroscopy RIGHT KNEE History of bladder suspension procedure AP REPAIR WITH BLADDER TACKING History of cardiac cath 2020 PH [place]-NO STENTS History of colonoscopy History of esophagogastroduodenoscopy (EGD) History of herniorrhaphy 04/2020 History of hysterectomy History of lithotripsy History of lumpectomy of left breast NO CHEMO/NO RADIATION-NO ARM RESTRICTION History of total knee replacement RIGHT-05/28/2018: L3-L4 1 attempt + PNB. Past Anesthesia History No Hx of Anesthesia Complications and No Family Hx of Anesthesia Complications History of PONV No Hx of PONV and No Hx of Motion Sickness Social History Smoking Status: Never smoker Do You Dip or Chew Tobacco: No Hx Alcohol Use: No Hx Substance Use: No substance use type: does not use Review of Systems Patient denies chest pain, shortness of breath, dyspnea on exertion, snoring, witnessed apneas, fever, chills, cough, wheezing, or palpitations. Physical Exam Vital Signs Vitals BP 112/80 P 92 TEMP 98.4 SP02 97% on RA RESP 17 Physical Full cervical extension range of motion without pain TMD 3.5 finger breadths Mallampati Score 2 Dentition: intact, upper removable partial; denies chipped or loose teeth, caps/crowns, implants or bridges Lungs: normal respiratory effort. Clear throughout to auscultation, no adventitious breath sounds Cardiac: regular rate and rhythm, no murmurs noted Carotid arteries: negative bruit bilat Lab Results Anesthesia Preop Results Results Anesthesia Widget: PT 10.7 Seconds (9.0-12.0) 02/13/22 PTT 24.3 Seconds (21.0-31.0) 02/13/22 INR 1.0 (0.9-1.1) 02/13/22 HA1c 5.8 % (4.5-5.6) H 02/13/22 Urine Color Dark Yellow 02/13/22 Urine Appearance Clear (Clear) 02/13/22 Urine pH 6.0 (4.5-7.5) 02/13/22 Urine Specific Early 1.018 (1.000-1.030) 02/13/22 Urine Protein Negative (Negative) 02/13/22 Urine Glucose (UA) Negative (Negative) 02/13/22 Urine Ketones Negative (Negative) 02/13/22 Urine Blood Negative (Negative) 02/13/22 Urine Nitrite Positive (Negative) A 02/13/22 Urine Bilirubin Negative (Negative) 02/13/22 Urine Urobilinogen Negative (Negative) 02/13/22 Urine Leukocyte Esterase 2+ (Negative) H 02/13/22 Urine WBC (Auto) >30 /hpf (0-5) H 02/13/22 Urine RBC (Auto) 0-4 /hpf (0-4) 02/13/22 Urine Hyaline Casts (Auto) 0 /lpf (0-5) 02/13/22 Urine Epithelial Cells (Auto) 10-20 /lpf (0-5) H 02/13/22 Urine Bacteria (Auto) 4+ (Negative) H 02/13/22 Blood Type A Positive 02/13/22 Antibody Screen NEGATIVE 02/13/22 Testing Laboratory Results Riya with surgeon's office made aware of abnormal UA. 01/21/2022 WBC: 9.4 H/H: PLATELETS: 277 SODIUM: 139 POTASSIUM: 3.4 CHLORIDE: 102 CO2: 25 BUN: 17 CREATININE: 0.8 GLUCOSE: 102 Electrocardiogram Date: 02/13/22 Atrial sensed ventricular paced rhythm, rate 92 bpm Chest X-Ray Date: 02/13/22 S-shaped scoliosis of the thoracolumbar spine is incidentally noted. Dual lead left subclavian pacer is in place. There is a hiatal hernia. This has increased in size since prior exam. Cardiac size is normal. No evidence for pulmonary edema. No consolidation to suggest pneumonia. There is no pneumothorax or pleural effusion. IMPRESSION: 1. No acute cardiopulmonary findings. 2. Hiatal hernia. 3. S-shaped scoliosis of the thoracolumbar spine.
--- NOTE | 2022-03-12 11:59 | History & Physical Report ---
Date of Service March 12, 2022 Assessment & Plan (1) Primary osteoarthritis of left knee: Plan: Treatment options discussed with patient. She has failed conservative measures. Risks, benefits and alternatives to surgery including but not limited to infection, DVT, pain, stiffness, need for revision surgery, damage to blood vessels, damage to nerves, PE, , were discussed with the patient and they wish to proceed. Plan on left total knee arthroplasty scheduled for [facility] on 03/13/[address] Posey. Plan on HH PT post op. Plan on aspirin 81 mg twice daily for 1 mo post op for DVT prophylaxis. All questions answered. F/u post op. History of Present Illness Chief Complaint: Left knee pain Primary Care Provider: Mahendra Powers MD 72yo female with PMHx significant for HTN, high cholesterol, anxiety, pacemaker who presents with ongoing left knee pain. She has failed conservative measures. Pain interfering with her daily activity. She would like to proceed with surgical intervention. Patient denies headaches, sweats, fevers, chills, double vision, blurred vision, cough, sore throat, dysphagia, chest pain, sob, wheezing, n/v/d/c, numbness, tingling, fatigue, urinary symptoms, mood disorders. ROS positive for left knee pain and stiffness. Allergies Allergy/AdvReac Type Severity Reaction Status Date / Time No Known Allergies Allergy Verified 03/13/22 05:46 Home Medications Medication Instructions Recorded Confirmed Type alprazolam 0.25 mg tablet 1 - 2 tab PO BID PRN Anxiety 05/08/18 03/13/22 History atorvastatin 20 mg tablet 20 mg PO QAM 05/08/18 03/13/22 History cranberry fruit concentrate 250 mg 2 tab PO QAM 05/08/18 03/13/22 History chewable tablet (Azo Cranberry) docusate sodium 100 mg capsule 2 tab PO QPM 05/08/18 03/13/22 History (Dulcolax Stool Softener (docusate)) hydroxyzine HCl 25 mg tablet 1 - 2 tab PO HS PRN Sleep 05/08/18 03/13/22 History lisinopril 20 1 tab PO QAM 05/08/18 03/13/22 History mg-hydrochlorothiazide 12.5 mg tablet pantoprazole 40 mg tablet,delayed 40 mg PO BID 05/08/18 03/13/22 History release venlafaxine 150 mg tablet,extended 150 mg PO QAM 05/08/18 03/13/22 History release 24 hr acetaminophen 500 mg capsule 1,000 mg PO Q8H pain #60 caps 05/30/18 03/13/22 Rx anastrozole 1 mg tablet 1 mg PO QAM 02/11/22 03/13/22 History cholecalciferol (vitamin D3) 50 100 mcg PO QAM 02/11/22 03/13/22 History mcg (2,000 unit) capsule (Vitamin D3) Lasix 10 mg PO DAILY 03/13/22 03/13/22 History Past Med/Surg History Medical History Anxiety Cancer LEFT BREAST-04/2021-no limb restriction Depression GERD (gastroesophageal reflux disease) controlled, stable per pt Hyperlipidemia Hypertension controlled, stable per pt Kidney stones Pacemaker William, PLACED 07/2020-F/U DR GAVIRIA Scoliosis Surgical History Cardiac pacemaker William History of arthroscopy RIGHT KNEE History of bladder suspension procedure AP REPAIR WITH BLADDER TACKING History of cardiac cath 2020 PH [place]-NO STENTS History of colonoscopy History of esophagogastroduodenoscopy (EGD) History of herniorrhaphy 04/2020 History of hysterectomy History of lithotripsy History of lumpectomy of left breast NO CHEMO/NO RADIATION-NO ARM RESTRICTION History of total knee replacement RIGHT-05/28/2018: L3-L4 1 attempt + PNB. Family History Other No known health problems Social History (Updated 02/11/22 @ 12:06 by Imelda Cason RN) Smoking Status: Never smoker Second Hand Exposure: No; Do You Dip or Chew Tobacco: No; Hx Alcohol Use: No Hx Substance Use: No Preferred Language: Monegasque Communication Ability: Effective Neuro Intensivist Physician Required: No Beliefs That Will Affect Care: None marital status: Current Living Situation: Alone current occupational status: retired Other Information That Helps Us Care for You: No Feels Safe at Home: Yes Safety Concerns: Feels Safe At This Time Assistive Devices: Denture - Upper and Glasses Assistive Devices Comment: PARTIAL Review of Systems All systems reviewed & are unremarkable except as noted in HPI & below Physical Exam Constitutional: well developed and well nourished; no acute distress Eyes: PERRL, conjunctivae normal, anicteric sclerae ENMT: external ear and nose normal, oropharynx normal Neck: trachea midline, no thyromegaly Respiratory: normal respiratory effort, lungs clear to auscultation Cardiovascular: RRR, no murmur, no edema Musculoskeletal: Left knee: Valgus alignment. Tenderness lateral joint line. Positive Daniel's. Stable to valgus and varus stress. ROM 10-100 degrees. Skin: no rashes, warm and dry Neurologic: patellar DTR's 2+ bilat, sensation intact Psychiatric: A+Ox3, euthymic affect Results & Data ([facility]) Diagnostic Findings X-rays left knee demonstrate she has a valgus knee, bone on bone in the lateral compartment, some osteopenia of the bones.
[2022-03-13] MEDS ORDERED: CeleBREX 200 MG CAP PO SCH (06:00)
[2022-03-13] MEDS ORDERED: dexAMETHasone 4 MG TAB PO SCH (06:00)
[2022-03-13] MEDS ORDERED: TRANEXAMIC ACID 1,000 MG **IV Pre-op IV SCH (06:00)
[2022-03-13] MEDS ORDERED: ceFAZolin 1000MG 1,000 MG/7.5 ML SYR IV SCH (06:00)
[2022-03-13] MEDS ORDERED: ROPIVACAINE 0.5% HCL/PF 150 MG, BUPIVACAINE 0.75% MPF 20 ML, EPINEPHrine 30MG/30ML (OR ... INSTIL SCH (06:00)
[2022-03-13] MEDS ORDERED: METOCLOPRAMIDE HCL 10 MG TABLET PO SCH (06:00)
[2022-03-13] MEDS ORDERED: LR 500ML BOLUS, THEN 15ML/HR IV SCH (06:00)
[2022-03-13] MEDS ORDERED: GABAPENTIN 300 MG CAP PO SCH (06:00)
[2022-03-13] MEDS ORDERED: ACETAMINOPHEN 500 MG TAB PO SCH (06:00)
[2022-03-13] MEDS ORDERED: FAMOTIDINE 20 MG TAB PO SCH (06:00)
[2022-03-13] MEDS ORDERED: TRANEXAMIC ACID 1,000 MG **IV Intra-op IV SCH (06:00)
[2022-03-13] MEDS ORDERED: BUPIVACAINE 0.5 % 5 MG/1 ML PF 10ML VIAL ONE (06:10)
[2022-03-13] MEDS ORDERED: ROPIVACAINE 0.5% 5 MG/ML 30 ML VIAL ONE (06:10)
[2022-03-13] MEDS ORDERED: EPINEPHrine INJ 1 MG/ML AMP ONE (06:10)
[2022-03-13] MEDS ORDERED: MIDAZOLAM HCL 1 MG/ML 2ML VIAL ONE (06:41)
[2022-03-13] MEDS ORDERED: PROPOFOL IV EMULSION 10 MG/ML 20 ML VIAL IV ONE ×3 (06:41→09:24)
[2022-03-13] MEDS ORDERED: ORTHO JOINT ANESTHETIC ONE (07:00)
--- NOTE | 2022-03-13 07:16 | History & Physical Bridge Note ---
Date of Service March 13, 2022 History & Physical Bridge Note I have examined the patient, reviewed the History & Physical and in the interval since the performance of the History & Physical I have noted the following changes of clinical significance: no changes noted
[2022-03-13] MEDS ORDERED: ATROPINE SULFATE 0.1 MG/ML 10ML SYR IV PRN (09:13)
[2022-03-13] MEDS ORDERED: ePHEDrine sulfate 50 MG/ML AMP IV PRN (09:13)
--- NOTE | 2022-03-13 09:52 | Post Operative Brief Note ---
Immediate Post Op Note v1 Date of Surgery March 13, 2022 Pre & Post Diagnosis Operation Date: 03/13/22 07:00 Pre-Op Diagnosis: Left Knee Osteoarthritis Post-Op Diagnosis: Left Knee Osteoarthritis I identified the patient and participated in the time-out.: Yes Procedure Operation Date: 03/13/22 07:00 Actual Procedures p Left Total Knee Arthroplasty(Left), application of a thang and Acticoat superficial wound VAC- Moises Posey MD Surgeon Moises Posey MD Toddler Guide Red SUMMERS Estimated Blood Loss 5 Findings Consistent with Post-Op Diagnosis Specimens Bone cuts Drains Hemovac Drain Anesthesia Type General Regional Complications none Disposition Disposition: Recovery Room Overlapping Procedure I was immediately available: during the entire case.
--- NOTE | 2022-03-13 10:16 | Operative Report ---
Post Operative Report Pre & Post Diagnosis Operation Date: 03/13/22 07:00 Pre-Op Diagnosis: Left Knee Osteoarthritis Post-Op Diagnosis: Left Knee Osteoarthritis I identified the patient and participated in the time-out.: Yes Procedure Operation Date: 03/13/22 07:00 Actual Procedures p Left Total Knee Arthroplasty(Left), application thang and Acticoat superficial wound VAC- Moises Posey MD Surgeon Moises Posey MD Tool And Machine Maintainer Red SUMMESR Estimated Blood Loss 5 Findings Consistent with Post-Op Diagnosis Specimens Bone cuts Drains 2 Hemovac Anesthesia Type MAC Spinal Regional Complications none Disposition Disposition: Recovery Room Indications 72-year-old female with progressive osteoarthritis in left knee. Patient is a valgus knee she is [id number] lateral compartment. Patient had a right knee replacement in 2018. Description of Procedure Patient taken to the operating room the size under spinal MAC regional block anesthesia. Patient was placed supine on the operating table. A pneumatic tourniquet was placed about the left upper thigh. The left lower extremity was prepped and draped in sterile fashion. Knee exam demonstrated valgus knee with [id number] lateral compartment no pseudolaxity and range of motion of 10 through 125 degrees. The leg was elevated exsanguinated with an Esmarch bandage and pneumatic tourniquet was raised to 300 millimeters of mercury. Skin incised sharply in longitudinal fashion. Subcutaneous flaps elevated. Incision was made through the medial retinaculum extending up in the mid third of the quadriceps tendon and down to the medial tibial tubercle. Intra-articular findings demonstrated tricompartmental osteoarthritis mainly lateral compartment with [id number] eburnated bone lateral compartment with a hypoplastic lateral femoral condyle. The Square[employer] triathlon total knee arthroplasty system was used. To expose the knee the infrapatellar fat pad was resected. The meniscal remnants and cruciate ligaments were resected. The anterior fat pad over the femur in the area of the anterior flange of the femoral component was resected. Lateral synovial bands release. The femur was exposed. An intramedullary drill hole was made into the canal. A guide selvin was placed. Distal femoral cutting guide was adjusted to resect a 5 degree valgus cut with 10 millimeters distal femur resected. The knee was extended and a subperiosteal peel lateral release was performed around the patella. Patella width was measured and width was reproduced using a freehand cut technique and a 33 x 9 symmetrical patella component. The 3 drill holes were made and the excess lateral facet was beveled off to prevent any impingement. Attention was taken back to the femur which was exposed with retractors and the femoral sizing guide was pinned in position. The drill holes were placed in 3 of external rotation to match epicondylar axis. Femur sized for a 4 component. The 4-in-1 cutting block was placed and then the anterior posterior and chamfer cuts are made. The tibia was then subluxed. The external tibial cutting guide was just to make a perpendicular cut to the long axis of the tibia below the most deficient bone loss side. A lamina candy spreader helper was used and the flexion extension gaps were balanced. All posterior osteophytes removed. All meniscal remnants were resected. The tibia exposed and the trial tibial component size 3 was externally rotated in line with the tibial tubercle and pinned in position. The drill and punch for stem were used. The notch cutting device was centered appropriately and the femoral notch cut was made. The femoral trial was inserted. Trial tibial inserts were placed and size 11 gave balanced ligaments through flexion and extension. Patella tracking was assessed. The patella tracked centrally. The trial components were then removed and the orthomix anesthetic cocktail was injected per protocol. The knee was then copiously irrigated with pulsatile lavage saline solution. Final components were then cemented with Refobacin cement. Final components were [place] triathlon size 4 left posterior stabilized femoral component, a 3 universal tibial baseplate with a 11 mm posterior stabilized polyethylene insert and a 33 x 9 mm symmetrical patella. After the cement cured the Betadine soak was used for 3 minutes. Further pulsatile lavage irrigation was then performed and 2 Hemovac drains were brought out laterally. The quadriceps tendon and medial retinaculum were closed with figure of 8 #1 Vicryl sutures. The knee was taken through full range of motion and the repair was secure. Knee range of motion was 0 through 135 degrees. The subcutaneous tissues were closed with 2-0 Vicryl sutures. Skin was closed with tom. A thang and Acticoat superficial wound VAC was applied. The patient tolerated the procedure well. Red SUMMERS was my physician human resources benefits assistant who participated as career services assistant and was involved in all aspects of the procedure including patient positioning prepping and draping,leg positioning ,soft tissue retraction and instrument management and participated in the closing and will participate in postoperative care of the patient. The patient tolerated the procedure well. I attest to the content of the Intraoperative Record and any orders documented therein. Any exceptions are noted below.
--- NOTE | 2022-03-13 10:44 | Anesthesiology Progress Note ---
Date of Service March 13, 2022 Anesthesia Post Procedure Vital Signs Vital Signs: Temp Pulse Resp BP Pulse Ox O2 Del Method O2 Flow Rate 03/13/22 10:10 76 12 140/81 100 Room Air 03/13/22 10:30 36.3 C L 73 13 132/64 100 Room Air 03/13/22 10:20 75 15 137/68 100 Room Air 03/13/22 10:00 83 14 119/83 100 Oxymask 4 03/13/22 09:52 36.9 C 83 15 137/76 100 Oxymask 4 03/13/22 05:52 36.7 C 72 18 164/84 H 98 Room Air Pain Intensity Left Knee: Pain Intensity: 6 Transfer of Care Handoff Completed per policy Notes Mental Status: alert / awake / arousable Patient Amnestic to Procedure: Yes Nausea / Vomiting: adequately controlled Pain: adequately controlled Airway Patency, RR, SpO2: stable & adequate BP & HR: stable & adequate Hydration State: stable & adequate Neuraxial Anesthesia: was administered and sensory block is resolving Anesthetic Complications: no major complications apparent
[2022-03-13] MEDS ORDERED: NALOXONE HCL 0.4 MG/1 ML VIAL/CARP IV PRN (10:56)
[2022-03-13] MEDS ORDERED: bisacodyL 10 MG SUPP PR PRN (10:56)
[2022-03-13] MEDS ORDERED: HYDROmorphone INJ 0.5 MG/0.5 ML SYR IV PRN (10:56)
[2022-03-13] MEDS ORDERED: ONDANSETRON INJ 2 MG/ML 2 ML VIAL IV PRN (10:56)
[2022-03-13] MEDS ORDERED: MAGNESIUM HYDROXIDE SUSP 30 ML UDC PO PRN (10:56)
[2022-03-13] MEDS ORDERED: METOCLOPRAMIDE HCL INJ 5 MG/ML 2 ML VIAL IV PRN (10:56)
--- NOTE | 2022-03-13 10:58 | XRay Report ---
XR knee LT 1 or 2V routine HISTORY: 72 years-old Female Surgical Post Op left knee total joint arthroplasty COMPARISON: None TECHNIQUE: 2 views of the left knee FINDINGS: Total joint arthroplasty with patellar resurfacing. Anterior midline skin tom are noted along wit h expected postoperative soft tissue swelling with deep tissue air an surgical drainage catheter. Art erial calcifications. No acute fracture or unexpected opaque foreign body. IMPRESSION: Total joint arthroplasty with expected postoperative changes. ACT 112: Negative or not required by law. The above report was generated using voice recognition software. It may contain grammatical, syntax o r spelling errors. Electronically signed by: Agus Cordon M.D. 03/13/2022 10:55 AM
--- NOTE | 2022-03-13 11:17 | Consultation ---
Date of Consultation March 13, 2022 Assessment & Plan (1) Primary osteoarthritis of left knee: (2) S/P total knee arthroplasty: (3) Pacemaker: (4) Hypertension: (5) Hyperlipidemia: (6) Anxiety and depression: (7) GERD (gastroesophageal reflux disease): Plan Ms. Hernandez is a 72 year old female with osteroarthritis of her left knee; failed conservative management and underwent a total left knee arthroscopy with Dr. Posey today without complications. Primary osteoarthritis of left knee S/P total left knee arthroscopy: POD# 0 s/p total left knee arthroscopy with Dr. Posey Per ortho for pain control, wound care, anticoagulation and activities. EBL 5mL Baseline Hgb: 13.4 . Monitor H&H; trend CBC in AM Encourage Incentive spirometry PT/OT when appropriate Anxiety and Depression: Stable; continue Venlafaxine Takes Alprazolam PRN; continue Pacemaker HTN: Pacer placed in 2018 when she was noted to have a second degree AVB Stable post op; takes Lisinopril; continue HLD: Continue Atorvastatin GERD: Stable; continue pantoprazole Disposition: PCP: Sylvia Shoemaker PA-C Code: Full code Goal to return home at [place] I personally was able to review all current laboratory work and diagnostic images obtained in the ED. Additionally, I was able to review the patients past medication reconciliation and history with direct visualization in the patients chart. This patient was discussed and collaborated with Dr. Rojas. Thanks for consulting the [facility]. Please contact us 23/12 via [place] [employer] with any concerns or questions. Supervising Physician Co-Signing Physician Notes Pt seen and examined by me, care coordinated w/ Pamella Dixon PA-C, pls refer to her note above for further detail. Pt is a 72 yo F with osteoarthritis of her left knee, now s/p Left TKA with Dr. Posey. Additional PMH includes HTN, HLD, anxiety, depression, high degree AVB s/p pacemaker placement, scoliosis, and GERD, hx of left breast cancer on anastrozole. Patient's son Dong, present at the bedside. Patient is sleepy after surgery, however easily arousable.She is able to answer questions appropriately. She is aware of being in the hospital and being after surgery.Denies any nausea, chest pain, shortness of breath. Denies any abdominal pain. Breath sounds are clear to auscultation. Heart sounds regular.Abdomen soft and nontender.Currently having difficulty moving lower extremities. RN at the bedside, and closely monitoring. Continue to closely monitor. MD Crystal History of Present Illness Requesting Physician: Dr. Posey Reason for Consultation: post-operative medical management Attending Physician: Moises Posey MD History of Present Illness Ms. Hernandez is a 72 year old female with osteoarthritis of her left knee; failed conservative management and underwent a total left knee arthroplasty with Dr. Posey today without complications. Additional PMH includes HTN, HLD, anxiety, depression, pacemaker s/p second degree AVB in 2018, scoliosis, and GERD. Patient was sleeping when I visited with her. Her son, Dong, was at her bedside who answered all of her PMH questions. Patient is sleeping soundly post-operatively. She was arousable, but still needs some time waking. She is independent at baseline with a goal to return home at discharge. Patient will be admitted for post-op medical management. Please see A/P for further details. Allergies Allergy/AdvReac Type Severity Reaction Status Date / Time No Known Allergies Allergy Verified 03/13/22 05:46 Home Medications Medication Instructions Recorded Confirmed Type alprazolam 0.25 mg tablet 1 - 2 tab PO BID PRN Anxiety 05/08/18 03/13/22 History atorvastatin 20 mg tablet 20 mg PO QAM 05/08/18 03/13/22 History cranberry fruit concentrate 250 mg 2 tab PO QAM 05/08/18 03/13/22 History chewable tablet (Azo Cranberry) docusate sodium 100 mg capsule 2 tab PO QPM 05/08/18 03/13/22 History (Dulcolax Stool Softener (docusate)) hydroxyzine HCl 25 mg tablet 1 - 2 tab PO HS PRN Sleep 05/08/18 03/13/22 History lisinopril 20 1 tab PO QAM 05/08/18 03/13/22 History mg-hydrochlorothiazide 12.5 mg tablet pantoprazole 40 mg tablet,delayed 40 mg PO BID 05/08/18 03/13/22 History release venlafaxine 150 mg tablet,extended 150 mg PO QAM 05/08/18 03/13/22 History release 24 hr acetaminophen 500 mg capsule 1,000 mg PO Q8H pain #60 caps 05/30/18 03/13/22 Rx anastrozole 1 mg tablet 1 mg PO QAM 02/11/22 03/13/22 History cholecalciferol (vitamin D3) 50 100 mcg PO QAM 02/11/22 03/13/22 History mcg (2,000 unit) capsule (Vitamin D3) Lasix 10 mg PO DAILY 03/13/22 03/13/22 History Patient History Medical History Anxiety Anxiety and depression Cancer LEFT BREAST-04/2021-no limb restriction Depression GERD (gastroesophageal reflux disease) controlled, stable per pt Hyperlipidemia Hypertension controlled, stable per pt Kidney stones Pacemaker William, PLACED 07/2020-F/U DR GAVIRIA Scoliosis Surgical History Cardiac pacemaker William History of arthroscopy RIGHT KNEE History of bladder suspension procedure AP REPAIR WITH BLADDER TACKING History of cardiac cath 2020 [facility] [place]-NO STENTS History of colonoscopy History of esophagogastroduodenoscopy (EGD) History of herniorrhaphy 04/2020 History of hysterectomy History of lithotripsy History of lumpectomy of left breast NO CHEMO/NO RADIATION-NO ARM RESTRICTION History of total knee replacement RIGHT-05/28/2018: L3-L4 1 attempt + PNB. Family History Other No known health problems Social History Smoking Status: Never smoker Second Hand Exposure: No; Do You Dip or Chew Tobacco: No; Hx Alcohol Use: No Hx Substance Use: No Preferred Language: Romanian Communication Ability: Effective Manager Cafe Required: No Beliefs That Will Affect Care: None marital status: Current Living Situation: Alone current occupational status: retired Other Information That Helps Us Care for You: No Feels Safe at Home: Yes Safety Concerns: Feels Safe At This Time Assistive Devices: Denture - Upper and Glasses Assistive Devices Comment: PARTIAL Review of Systems Review of Systems: Unobtainable due to cognitive status (post-operative s leepiness) Physical Exam Physical Exam: Neuro: AAOx4, PERRLA, no aphagia, memory changes, CNII-XII grossly intact HEENT: head normocephalic, moist mucus membranes CV: S1/S2, (-) M/G/R, (-) edema, cap refill < 3 seconds Resp: Lungs CTA in all maddox. On RA GI: Abdomen S/NT/ND, Ax4 bowel sounds, (-) CVA tenderness Musculoskeletal: 5/5 B/L UE strength, 5/5 B/L LE strength. No gait disturbance Skin: (-) rashes , (-) erythema. Psych: euthymic mood Results & Data [facility]) Vital Signs (Past 12 Hours) Vital Signs Temp Pulse Resp BP Pulse Ox O2 Del Method O2 Flow Rate 03/13/22 11:00 36.5 C 69 18 112/71 95 Room Air 03/13/22 10:40 73 14 116/65 100 Room Air 03/13/22 10:10 76 12 140/81 100 Room Air 03/13/22 10:30 36.3 C L 73 13 132/64 100 Room Air 03/13/22 10:20 75 15 137/68 100 Room Air 03/13/22 10:00 83 14 119/83 100 Oxymask 4 03/13/22 09:52 36.9 C 83 15 137/76 100 Oxymask 4 03/13/22 05:52 36.7 C 72 18 164/84 H 98 Room Air
[2022-03-13] MEDS: SODIUM CHLORIDE 0.9% 1000ML 1,000 ML IV SCH ×2 (11:45→23:29)
[2022-03-13] MEDS: ACETAMINOPHEN 500 MG TAB PO SCH ×2 (14:10→22:06)
[2022-03-13] MEDS: ceFAZolin 1000MG 1,000 MG/7.5 ML SYR IV SCH ×2 (17:40→23:29)
[2022-03-13] MEDS: PANTOprazole 40 MG TAB PO SCH (20:32)
[2022-03-13] MEDS: DOCUSATE SODIUM 100 MG CAP PO SCH (20:33)
[2022-03-13] MEDS: ASPIRIN 81 MG ECTAB PO SCH (20:33)
[2022-03-13] MEDS: CeleBREX 200 MG CAP PO SCH (20:33)
[2022-03-13] MEDS: SENNA 8.6 MG TAB PO SCH (20:34)
[2022-03-13] MEDS ORDERED: DOCUSATE SODIUM 100 MG CAP PO SCH (21:00)
[2022-03-13] MEDS: hydrOXYzine HCl 25 MG TAB PO PRN (22:06)
[2022-03-13] MEDS: ALPRAZolam 0.25 MG TABLET PO PRN (23:36)
[2022-03-14] MEDS: ACETAMINOPHEN 500 MG TAB PO SCH ×3 (05:41→20:45)
--- NOTE | 2022-03-14 07:27 | Orthopedic Progress Note ---
Date of Service March 14, 2022 Assessment & Plan (1) S/P total knee arthroplasty: Plan: POD#1 Left TKA -PT/OT -Pain management as written -AM labs-Pending -DVT prophylaxis-SCDs, TEDs, Asprin 81mg twice daily -D/C planning-discharge home with Home health PT. Plan on discharge likely tomorrow. Admission and Anticipated Discharge Date Admission Date: March 13, 2022 Subjective Patient resting in bed comfortably. No onset of pain yet. Patient states she did have some trouble standing this morning as her left leg wants to give out, likely residual from the block. No other complaints. Denies chest pain, shortness of breath, lightheadedness/dizziness, nausea/vomiting/diarrhea. Review of Systems Review of Systems: All systems reviewed & are unremarkable except as noted in Subjective Physical Exam Physical Exam: Left leg: Dressing is clean, dry, intact. Hemovac in place. Toes are mobile with good dorsiflexion. Able to do straight leg raise. No calf tenderness. Distally neurovascular status and sensation intact. Constitutional: no acute distress Results & Data ([facility]) Vital Signs (Past 12 Hours) Vital Signs Temp Pulse Resp BP Pulse Ox O2 Del Method 03/14/22 03:08 36.7 C 65 16 102/63 95 Room Air 03/13/22 23:16 36.9 C 71 17 118/74 93 Room Air
[2022-03-14] MEDS: ANASTROZOLE 1 MG TAB PO SCH (08:21)
[2022-03-14] MEDS: ASPIRIN 81 MG ECTAB PO SCH ×2 (08:23→20:44)
[2022-03-14] MEDS: ATORVASTATIN 20 MG TAB PO SCH (08:23)
[2022-03-14] MEDS: CeleBREX 200 MG CAP PO SCH ×2 (08:23→20:43)
[2022-03-14] MEDS: CHOLECALCIFEROL 1,000 UNITS 25 MCG TAB PO SCH (08:24)
[2022-03-14] MEDS: DOCUSATE SODIUM 100 MG CAP PO SCH ×2 (08:24→20:45)
[2022-03-14] MEDS: FUROSEMIDE 20 MG TAB PO SCH (08:25)
[2022-03-14] MEDS: LISINOPRIL/HCTZ 20/12.5MG 1 TAB TAB PO SCH (08:26)
[2022-03-14] MEDS: VENLAFAXINE HCL XR 150 MG CAPXR PO SCH (08:27)
[2022-03-14] MEDS: PANTOprazole 40 MG TAB PO SCH ×2 (08:27→20:42)
[2022-03-14] MEDS: MULTIVITAMIN TAB PO SCH (08:27)
[2022-03-14 08:56] LABS: Hematocrit (blood only) 28.3 % (34.1-44.9); Hemoglobin 9.3 g/dl (12.0-16.0); Mean Corpuscular Hgb Conc 32.9 g/dL (32.0-36.0); Mean Corpuscular Volume 88.2 fL (80.0-100.0); Platelet Count 211 K/uL (130-400); RDW Coefficient of Variation 14.8 % (11.5-14.5); RDW Standard Deviation 47.8 fL (36.4-46.3); Red Blood Count 3.21 M/uL (3.93-5.22); White Blood Count 11.19 K/ul (4.8-10.8)
[2022-03-14 09:25] LABS: BUN Creatinine Ratio 22.5 (10-20); Calcium 7.8 mg/dl (8.5-10.1); Creatinine Clr Calc Pharmacy 60.9 ml/min; Est GFR (African American) 84.8 ml/min; Est GFR (Non-African American) 73.1 ml/min; Potassium 3.9 mmol/L (3.5-5.1)
[2022-03-14] MEDS: oxyCODONE HCL IR 5 MG TAB (IMMEDIATE RELEASE) PO PRN ×2 (10:24→16:46)
--- NOTE | 2022-03-14 13:41 | Hospitalist Progress Note ---
Date of Service March 14, 2022 Assessment & Plan (1) Primary osteoarthritis of left knee: (2) S/P total knee arthroplasty: (3) Pacemaker: (4) Hypertension: (5) Hyperlipidemia: (6) Anxiety and depression: (7) GERD (gastroesophageal reflux disease): Plan Ms. Hernandez is a 72 year old female with osteroarthritis of her left knee; failed conservative management and underwent a total left knee arthroscopy with Dr. Posey today without complications. Primary osteoarthritis of left knee S/P total left knee arthroscopy: POD# 1 s/p total left knee arthroscopy with Dr. Posey Per ortho for pain control-continues on scheduled Tylenol and oxycodone 10mg twice today, wound care, anticoagulation and activities. EBL 5mL H/H stable Encourage Incentive spirometry PT/OT when appropriate Patient plans for dc in am. Anxiety and Depression: chronic, Stable; continue Venlafaxine PDMP reflects no given script for Xanax since 2020. Would give this cautiously. Pacemaker Pacer placed in 2018 when she was noted to have a second degree AVB HTN: chornic, stable. Cont lisinopril/HCTZ per home regimen. Held torsemide for the time being. HLD: chronic, stable. Continue Atorvastatin GERD: Stable; continue pantoprazole Disposition: DVT proph: ASA 81mg PO BID PCP: Sylvia Shoemaker PA-C Code: Full code Goal to return home at [place] Thank you for this consultation. We will continue to follow her care during this hospital stay. Negin Morgan DO [facility] Ad[facility] and Anticipated Discharge Date Admission Date: March 13, 2022 Subjective Patient resting in bed comfortably. No onset of pain yet. Patient states she did have some trouble standing this morning as her left leg wants to give out, likely residual from the block. Therapy placed knee immobilizer and she is doing better from that standpoint. No other complaints. Denies chest pain, shortness of breath, lightheadedness/dizziness, nausea/vomiting/diarrhea. Review of Systems Review of Systems: All systems were reviewed and negative except as indicated in HPI above. Physical Exam Physical Exam: CONSTITUTIONAL: WNWD, vitals as above, generally well- appearing, NAD EYES: normal conjunctivae, no scleral icterus, ENT: external ear and nose normal, MMM NECK: trachea midline, RESPIRATORY: clear to auscultation bilaterally, no crackles, rales or wheezes, normal respiratory effort CARDIOVASCULAR: regular rate and rhythm, S1 and 2 heard without murmurs, gallops or rubs, no JVD, no peripheral edema CHEST: inspection of chest was normal GASTROINTESTINAL: soft, nontender, ND, no guarding MUSCULOSKELETAL: strength 5/5 throughout except that left knee is in a full leg immobilizer, head is normocephalic and atraumatic SKIN: warm and dry, incision site not able to be viewed 2/2/ dressings. NEUROLOGIC: CN 2-12 grossly intact, no sensory deficit, normal cognition, normal speech, no tremor, LLE is NVI PSYCHIATRIC: alert cooperative and oriented to person, place and time. Results & Data Results & Data ([facility]) Vital Signs (Past 12 Hours) Vital Signs Temp Pulse Resp BP Pulse Ox O2 Del Method 03/14/22 08:39 36.9 C 65 16 109/73 96 03/14/22 03:08 36.7 C 65 16 102/63 95 Room Air Laboratory Results Short CBC 03/14/22 Range/Units 08: WBC 11.19 H (4.8-10.8) K/ul Hgb 9.3 L (12.0-16.0) g/dl Hct 28.3 L (34.1-44.9) % Plt Count 211 (130-400) K/uL BMP 03/14/22 08:22 Sodium 143 Potassium 3.9 Chloride 110 H Carbon Dioxide 27 BUN 18 Creatinine 0.80 Glucose 88 Calcium 7.8 L Medications Administered Current Inpatient Medications Acetaminophen (Acetaminophen 500 Mg Tab) 1,000 mg PO Q8 [facility] Stop: 04/12/22 13:59 Last Admin: 03/14/22 05:41 Dose: 1,000 mg Alprazolam (Alprazolam 0.25 Mg Tablet) 0.25 mg PO BID PRN PRN Reason: Anxiety Stop: 04/12/22 10:55 Last Admin: 03/13/22 23:36 Dose: 0.25 mg Anastrozole (Anastrozole 1 Mg Tab) 1 mg PO QAM [facility] Stop: 04/13/22 08:59 Last Admin: 03/14/22 08:21 Dose: 1 mg Aspirin (Aspirin 81 Mg Ectab) 81 mg PO BID [facility] Stop: 04/12/22 20:59 Last Admin: 03/14/22 08:23 Dose: 81 mg Atorvastatin Calcium (Atorvastatin 20 Mg Tab) 20 mg PO QAM [facility] Stop: 04/13/22 08:59 Last Admin: 03/14/22 08:23 Dose: 20 mg Bisacodyl (Bisacodyl 10 Mg Supp) 10 mg LA DAILY PRN PRN Reason: Constipation Stop: 04/12/22 10:55 Celecoxib (Celebrex 200 Mg Cap) 200 mg PO BID [facility] Stop: 04/12/22 20:59 Last Admin: 03/14/22 08:23 Dose: 200 mg Docusate Sodium (Docusate Sodium 100 Mg Cap) 100 mg PO BID [facility] Stop: 04/12/22 20:59 Last Admin: 03/14/22 08:24 Dose: 100 mg Furosemide (Furosemide 20 Mg Tab) 10 mg PO DAILY [facility] Stop: 04/13/22 08:59 Last Admin: 03/14/22 08:25 Dose: 10 mg Lisinopril/HCTZ (Lisinopril/Hctz 20/12.5mg 1 Tab Tab) 1 tab PO QAM [facility] Stop: 04/13/22 08:59 Last Admin: 03/14/22 08:26 Dose: 1 tab Hydromorphone HCl (Hydromorphone Inj 0.5 Mg/0.5 Ml Syr) 0.5 mg IV Q4H PRN PRN Reason: Pain or Pre PT Stop: 03/27/22 10:55 Hydroxyzine HCl (Hydroxyzine Hcl 25 Mg Tab) 25 mg PO HS PRN PRN Reason: Sleep Stop: 04/12/22 10:55 Last Admin: 03/13/22 22:06 Dose: 25 mg Magnesium Hydroxide (Magnesium Hydroxide Susp 30 Ml Udc) 30 ml PO Q6H PRN PRN Reason: Constipation Stop: 04/12/22 10:55 Metoclopramide HCl (Metoclopramide Hcl Inj 5 Mg/Ml 2 Ml Vial) 10 mg IV Q6H PRN PRN Reason: Nausea And Vomiting Stop: 04/12/22 10:55 Multivitamins (Multivitamin Tab) 1 tab PO QAM [facility] Stop: 04/13/22 08:59 Last Admin: 03/14/22 08:27 Dose: 1 tab Naloxone HCl (Naloxone Hcl 0.4 Mg/1 Ml Vial/Carp) 0.1 mg IV Q5M PRN PRN Reason: Oversedation/Resp Depression Stop: 04/12/22 10:55 Ondansetron HCl (Ondansetron Inj 2 Mg/Ml 2 Ml Vial) 4 mg IV Q6H PRN PRN Reason: Nausea And Vomiting Stop: 04/12/22 10:55 Oxycodone HCl (Oxycodone Hcl Ir 5 Mg Tab (Immediate Release)) 5 - 10 mg PO Q4H PRN PRN Reason: Pain or Pre PT Stop: 03/27/22 10:55 Last Admin: 03/14/22 10:24 Dose: 10 mg Pantoprazole Sodium (Pantoprazole 40 Mg Tab) 40 mg PO BID [facility] Stop: 04/12/22 20:59 Last Admin: 03/14/22 08:27 Dose: 40 mg Sennosides (Senna 8.6 Mg Tab) 17.2 mg PO HS [facility] Stop: 04/12/22 20:59 Last Admin: 03/13/22 20:34 Dose: 17.2 mg Venlafaxine HCl (Venlafaxine Hcl Xr 150 Mg Capxr) [facility] [place]: 04/13/22 08:59 Last Admin: 03/14/22 08:27 Dose: 150 mg Vitamin D (Cholecalciferol 1,000 Units 25 Mcg Tab) 4,000 units PO QAM [facility] Stop: 04/13/22 08:59 Last Admin: 03/14/22 08:24 Dose: 4,000 units
[2022-03-14] MEDS: SENNA 8.6 MG TAB PO SCH (20:44)
[2022-03-14] MEDS: ALPRAZolam 0.25 MG TABLET PO PRN (20:48)
[2022-03-15] MEDS: hydrOXYzine HCl 25 MG TAB PO PRN (03:00)
[2022-03-15] MEDS: oxyCODONE HCL IR 5 MG TAB (IMMEDIATE RELEASE) PO PRN ×5 (04:18→21:48)
[2022-03-15] MEDS: ACETAMINOPHEN 500 MG TAB PO SCH ×3 (06:02→21:47)
[2022-03-15] MEDS ORDERED: KETOROLAC TROMETHAMINE 15 MG/ML VIAL IV ONE (07:33)
--- NOTE | 2022-03-15 07:33 | Orthopedic Progress Note ---
Date of Service March 15, 2022 Assessment & Plan (1) S/P total knee arthroplasty: Plan: POD#2 Left TKA -PT/OT -Pain management as written -DVT prophylaxis-SCDs, TEDs, Asprin 81mg twice daily -D/C planning-discharge home with Home health PT. Plan on discharge home today after PT if doing well. Admission and Anticipated Discharge Date Admission Date: March 13, 2022 Subjective Patient is having increased pain overnight. Otherwise she is doing well. No other complaints. Denies chest pain, shortness of breath, lightheadedness, dizziness/light headedness , n/v/d Review of Systems Review of Systems: All systems reviewed & are unremarkable except as noted in Subjective Physical Exam Physical Exam: Left leg: Dressing is clean, dry, intact. Hemovac in place. Toes are mobile with good dorsiflexion. Able to do straight leg raise. No calf tenderness. Distally neurovascular status and sensation intact. Constitutional: well developed and well nourished; no acute distress Results & Data ([facility]) Vital Signs (Past 12 Hours) Vital Signs Temp Pulse Resp BP Pulse Ox O2 Del Method 03/15/22 07:18 36.4 C L 93 H 16 124/79 93 Room Air 03/14/22 22:06 36.8 C 64 18 124/69 93 Room Air
[2022-03-15] MEDS: VENLAFAXINE HCL XR 150 MG CAPXR PO SCH (08:09)
[2022-03-15] MEDS: MULTIVITAMIN TAB PO SCH (08:09)
[2022-03-15] MEDS: ASPIRIN 81 MG ECTAB PO SCH ×2 (08:09→21:47)
[2022-03-15] MEDS: PANTOprazole 40 MG TAB PO SCH ×2 (08:09→21:47)
[2022-03-15] MEDS: LISINOPRIL/HCTZ 20/12.5MG 1 TAB TAB PO SCH (08:10)
[2022-03-15] MEDS: CHOLECALCIFEROL 1,000 UNITS 25 MCG TAB PO SCH (08:10)
[2022-03-15] MEDS: ATORVASTATIN 20 MG TAB PO SCH (08:11)
[2022-03-15] MEDS: CeleBREX 200 MG CAP PO SCH ×2 (08:11→21:47)
[2022-03-15] MEDS: DOCUSATE SODIUM 100 MG CAP PO SCH ×2 (08:12→21:47)
[2022-03-15] MEDS: FUROSEMIDE 20 MG TAB PO SCH (10:34)
[2022-03-15] MEDS: ANASTROZOLE 1 MG TAB PO SCH (10:35)
--- NOTE | 2022-03-15 17:18 | Hospitalist Progress Note ---
Date of Service March 15, 2022 Assessment & Plan (1) Primary osteoarthritis of left knee: (2) S/P total knee arthroplasty: (3) Pacemaker: (4) Hypertension: (5) Hyperlipidemia: (6) Anxiety and depression: (7) GERD (gastroesophageal reflux disease): Plan Ms. Hernandez is a 72 year old female with osteroarthritis of her left knee; failed conservative management and underwent a total left knee arthroscopy with Dr. Posey today without complications. Primary osteoarthritis of left knee S/P total left knee arthroscopy: POD# 2 s/p total left knee arthroscopy with Dr. Posey Per ortho for pain control-continues on scheduled Tylenol and oxycodone 10mg twice today, wound care, anticoagulation and activities. EBL 5mL H/H stable Encourage Incentive spirometry PT/OT when appropriate Patient plans for dc later today. We discussed her support system at home and she feels up to going. Anxiety and Depression: chronic, Stable; continue Venlafaxine PDMP reflects no given script for Xanax since 2020. Would give this cautiously. 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 Cont lisinopril/HCTZ per home regimen. Held torsemide for the time being. OK to resume at discharge. HLD: chronic, stable. Continue Atorvastatin GERD: Stable; continue pantoprazole Disposition: DVT proph: ASA 81mg PO BID PCP: Sylvia Shoemaker PA-C Code: Full code Goal to return home at [place] Thank you for this consultation. We will continue to follow her care during this hospital stay. Negin Morgan DO [facility] Admission and Anticipated Discharge Date Admission Date: March 13, 2022 Subjective Patient resting in bed comfortably. Some increased pain improved with oxycodone. She is going home and will be alone. She is having HH come in this week. She feels she will be ok with this. Drain is still in this afternoon and she feels this will be coming out prior to discharge. Review of Systems Review of Systems: All systems were reviewed and negative except as indicated in HPI above. Physical Exam Physical Exam: CONSTITUTIONAL: WNWD, vitals as above, generally well- appearing, NAD EYES: normal conjunctivae, no scleral icterus, ENT: external ear and nose normal, MMM NECK: trachea midline, RESPIRATORY: clear to auscultation bilaterally, no crackles, rales or wheezes, normal respiratory effort CARDIOVASCULAR: regular rate and rhythm, S1 and 2 heard without murmurs, gallops or rubs, no JVD, no peripheral edema CHEST: inspection of chest was normal GASTROINTESTINAL: soft, nontender, ND, no guarding MUSCULOSKELETAL: strength 5/5 throughout except that left knee is in a full leg immobilizer, head is normocephalic and atraumatic, drain in place. SKIN: warm and dry, incision site not able to be viewed 2/2/ dressings. NEUROLOGIC: CN 2-12 grossly intact, no sensory deficit, normal cognition, normal speech, no tremor, LLE is NVI PSYCHIATRIC: alert cooperative and oriented to person, place and time. Results & Data Results & Data ([facility]) Vital Signs (Past 12 Hours) Vital Signs Temp Pulse Resp BP Pulse Ox O2 Del Method 03/15/22 15:01 36.6 C 71 18 143/79 H 97 Room Air 03/15/22 07:18 36.4 C L 93 H 16 124/79 93 Room Air
[2022-03-15] MEDS: SENNA 8.6 MG TAB PO SCH (21:46)
[2022-03-15] MEDS: ALPRAZolam 0.25 MG TABLET PO PRN (21:51)
[2022-03-16] MEDS: oxyCODONE HCL IR 5 MG TAB (IMMEDIATE RELEASE) PO PRN ×3 (02:30→12:37)
[2022-03-16] MEDS: ACETAMINOPHEN 500 MG TAB PO SCH (05:53)
[2022-03-16] MEDS: ASPIRIN 81 MG ECTAB PO SCH (08:25)
[2022-03-16] MEDS: CHOLECALCIFEROL 1,000 UNITS 25 MCG TAB PO SCH (08:25)
[2022-03-16] MEDS: MULTIVITAMIN TAB PO SCH (08:25)
[2022-03-16] MEDS: ATORVASTATIN 20 MG TAB PO SCH (08:25)
[2022-03-16] MEDS: VENLAFAXINE HCL XR 150 MG CAPXR PO SCH (08:25)
[2022-03-16] MEDS: DOCUSATE SODIUM 100 MG CAP PO SCH (08:25)
[2022-03-16] MEDS: CeleBREX 200 MG CAP PO SCH (08:25)
[2022-03-16] MEDS: LISINOPRIL/HCTZ 20/12.5MG 1 TAB TAB PO SCH (08:25)
[2022-03-16] MEDS: FUROSEMIDE 20 MG TAB PO SCH (08:25)
[2022-03-16] MEDS: ANASTROZOLE 1 MG TAB PO SCH (08:25)
[2022-03-16] MEDS: PANTOprazole 40 MG TAB PO SCH (08:25)
--- NOTE | 2022-03-16 08:32 | Orthopedic Progress Note ---
Date of Service March 16, 2022 Assessment & Plan (1) S/P total knee arthroplasty: Plan: POD#3 Left TKA -PT/OT -Pain management as written -DVT prophylaxis-SCDs, TEDs, Asprin 81mg twice daily -D/C planning-discharge home with Home health PT. Yesterday therapy was recommending inpatient rehab patient prefers to go home. Discharge was canceled yesterday. She is feeling much better today with her pain much better controlled. Still hoping to go home. We will see how she does in therapy and plan on discharge home. Admission and Anticipated Discharge Date Admission Date: March 13, 2022 Subjective Patient is feeling much better this morning. Pain is much better controlled. Hoping to go home today. No other complaints. Review of Systems Review of Systems: All systems reviewed & are unremarkable except as noted in Subjective Physical Exam Physical Exam: Left leg: Dressing is clean, dry, intact. Mild drainage and Hemovac dressing site. Toes are mobile with good dorsiflexion. Able to do straight leg raise. No calf tenderness. Distally neurovascular status and sensation intact. Constitutional: well developed and well nourished; no acute distress Results & Data ([facility]) Vital Signs (Past 12 Hours) Vital Signs Temp Pulse Resp BP Pulse Ox O2 Del Method 03/16/22 07:50 36.4 C L 62 16 153/81 H 95 Room Air 03/15/22 21:29 37.1 C 70 18 156/80 H 95 Room Air
--- NOTE | 2022-03-16 11:11 | Hospitalist Progress Note ---
Date of Service March 16, 2022 Assessment & Plan (1) Primary osteoarthritis of left knee: (2) S/P total knee arthroplasty: (3) Pacemaker: (4) Hypertension: (5) Hyperlipidemia: (6) Anxiety and depression: (7) GERD (gastroesophageal reflux disease): Plan Ms. Hernandez is a 72 year old female with osteroarthritis of her left knee; failed conservative management and underwent a total left knee arthroscopy with Dr. Posey today without complications. Primary osteoarthritis of left knee S/P total left knee arthroscopy: POD# 3 s/p total left knee arthroscopy with Dr. Posey Per ortho for pain control-continues on scheduled Tylenol and oxycodone 10mg twice today, wound care, anticoagulation and activities. EBL 5mL H/H stable Encourage Incentive spirometry PT/OT when appropriate Patient plans for dc later today. We discussed her support system at home and she feels up to going-ortho held dc in order to watch her one more day with ongoing pain Anxiety and Depression: chronic, Stable; continue Venlafaxine PDMP reflects no given script for Xanax since 2020. Would give this cautiously. 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 Cont lisinopril/HCTZ per home regimen. Will restart home torsemide now. HLD: chronic, stable. Continue Atorvastatin GERD: Stable; continue pantoprazole Disposition: DVT proph: ASA 81mg PO BID PCP: Sylvia Shoemaker PA-C Code: Full code Goal to return home at DC-she is medically cleared for discharge when ok with primary surgical team. Thank you for this consultation. We will continue to follow her care during this hospital stay. Negin Morgan DO [facility] Hospitalist Admission and Anticipated Discharge Date Admission Date: March 13, 2022 Subjective Patient resting in bed comfortably. Some increased pain overnight requiring oxycodone. There is a question of resource limitation to support her adequately at home. Physical and Occupational Therapy were supposed to reevaluate her today and she with orthopedic surgery team were going to decide the correct disposition. Review of Systems Review of Systems: All systems were reviewed and negative except as indicated in HPI above. Physical Exam Physical Exam: CONSTITUTIONAL: WNWD, vitals as above, generally well- appearing, NAD EYES: normal conjunctivae, no scleral icterus, ENT: external ear and nose normal, MMM NECK: trachea midline, RESPIRATORY: clear to auscultation bilaterally, no crackles, rales or wheezes, normal respiratory effort CARDIOVASCULAR: regular rate and rhythm, S1 and 2 heard without murmurs, gallops or rubs, no JVD, no peripheral edema CHEST: inspection of chest was normal GASTROINTESTINAL: soft, nontender, ND, no guarding MUSCULOSKELETAL: strength 5/5 throughout except that left knee is in a full leg immobilizer, head is normocephalic and atraumatic, drain in place. SKIN: warm and dry, incision site not able to be viewed 2/2 dressings. NEUROLOGIC: CN 2-12 grossly intact, no sensory deficit, normal cognition, normal speech, no tremor, LLE is NVI PSYCHIATRIC: alert cooperative and oriented to person, place and time. Results & Data Results & Data ([facility]) Vital Signs (Past 12 Hours) Vital Signs Temp Pulse Resp BP Pulse Ox O2 Del Method 03/16/22 09:35 36.4 C L 62 16 153/81 H 95 03/16/22 07:50 36.4 C L 62 16 153/81 H 95 Room Air Medications Administered Current Inpatient Medications Acetaminophen (Acetaminophen 500 Mg Tab) 1,000 mg PO Q8 [facility] Stop: 04/12/22 13:59 Last Admin: 03/16/22 05:53 Dose: 1,000 mg Alprazolam (Alprazolam 0.25 Mg Tablet) 0.25 mg PO BID PRN PRN Reason: Anxiety Stop: 04/12/22 10:55 Last Admin: 03/15/22 21:51 Dose: 0.25 mg Anastrozole (Anastrozole 1 Mg Tab) 1 mg PO QAM [facility] Stop: 04/13/22 08:59 Last Admin: 03/16/22 08:25 Dose: 1 mg Aspirin (Aspirin 81 Mg Ectab) 81 mg PO BID YANET Stop: 04/12/22 20:59 Last Admin: 03/16/22 08:25 Dose: 81 mg Atorvastatin Calcium (Atorvastatin 20 Mg Tab) 20 mg PO QAM YANET Stop: 04/13/22 08:59 Last Admin: 03/16/22 08:25 Dose: 20 mg Bisacodyl (Bisacodyl 10 Mg Supp) 10 mg PA DAILY PRN PRN Reason: Constipation Stop: 04/12/22 10:55 Celecoxib (Celebrex 200 Mg Cap) 200 mg PO BID [facility] Stop: 04/12/22 20:59 Last Admin: 03/16/22 08:25 Dose: 200 mg Docusate Sodium (Docusate Sodium 100 Mg Cap) 100 mg PO BID [facility] Stop: 04/12/22 20:59 Last Admin: 03/16/22 08:25 Dose: 100 mg Furosemide (Furosemide 20 Mg Tab) 10 mg PO DAILY [facility] Stop: 04/13/22 08:59 Last Admin: 03/16/22 08:25 Dose: 10 mg Lisinopril/HCTZ (Lisinopril/Hctz 20/12.5mg 1 Tab Tab) 1 tab PO QAM [facility] Stop: 04/13/22 08:59 Last Admin: 03/16/22 08:25 Dose: 1 tab Hydromorphone HCl (Hydromorphone Inj 0.5 Mg/0.5 Ml Syr) 0.5 mg IV Q4H PRN PRN Reason: Pain or Pre PT Stop: 03/27/22 10:55 Hydroxyzine HCl (Hydroxyzine Hcl 25 Mg Tab) 25 mg PO HS PRN PRN Reason: Sleep Stop: 04/12/22 10:55 Last Admin: 03/15/22 03:00 Dose: 25 mg Magnesium Hydroxide (Magnesium Hydroxide Susp 30 Ml Udc) 30 ml PO Q6H PRN PRN Reason: Constipation Stop: 04/12/22 10:55 Metoclopramide HCl (Metoclopramide Hcl Inj 5 Mg/Ml 2 Ml Vial) 10 mg IV Q6H PRN PRN Reason: Nausea And Vomiting Stop: 04/12/22 10:55 Multivitamins (Multivitamin Tab) 1 tab PO QAM [facility] Stop: 04/13/22 08:59 Last Admin: 03/16/22 08:25 Dose: 1 tab Naloxone HCl (Naloxone Hcl 0.4 Mg/1 Ml Vial/Carp) 0.1 mg IV Q5M PRN PRN Reason: Oversedation/Resp Depression Stop: 04/12/22 10:55 Ondansetron HCl (Ondansetron Inj 2 Mg/Ml 2 Ml Vial) 4 mg IV Q6H PRN PRN Reason: Nausea And Vomiting Stop: 04/12/22 10:55 Oxycodone HCl (Oxycodone Hcl Ir 5 Mg Tab (Immediate Release)) 5 - 10 mg PO Q4H PRN PRN Reason: Pain or Pre PT Stop: 03/27/22 10:55 Last Admin: 03/16/22 08:28 Dose: 5 mg Pantoprazole Sodium (Pantoprazole 40 Mg Tab) 40 mg PO BID YANET Stop: 04/12/22 20:59 Last Admin: 03/16/22 08:25 Dose: 40 mg Sennosides (Senna 8.6 Mg Tab) 17.2 mg PO HS YANET Stop: 04/12/22 20:59 Last Admin: 03/15/22 21:46 Dose: 17.2 mg Venlafaxine HCl (Venlafaxine Hcl Xr 150 Mg Capxr) 150 mg PO QA YANET Stop: 04/13/22 08:59 Last Admin: 03/16/22 08:25 Dose: 150 mg Vitamin D (Cholecalciferol 1,000 Units 25 Mcg Tab) 4,000 units PO QAM YANET Stop: 04/13/22 08:59 Last Admin: 03/16/22 08:25 Dose: 4,000 units
--- NOTE | 2022-03-17 07:24 | Discharge Summary ---
Date of Service March 17, 2022 Admission HPI Per Admitting Provider 72yo female with PMHx significant for HTN, high cholesterol, anxiety, pacemaker who presents with ongoing left knee pain. She has failed conservative measures. Pain interfering with her daily activity. She would like to proceed with surgical intervention. Patient denies headaches, sweats, fevers, chills, double vision, blurred vision, cough, sore throat, dysphagia, chest pain, sob, wheezing, n/v/d/c, numbness, tingling, fatigue, urinary symptoms, mood disorders. ROS positive for left knee pain and stiffness. Admission Exam Per Admitting Provider Constitutional: well developed and well nourished; no acute distress Eyes: PERRL, conjunctivae normal, anicteric sclerae ENMT: external ear and nose normal, oropharynx normal Neck: trachea midline, no thyromegaly Respiratory: normal respiratory effort, lungs clear to auscultation Cardiovascular: RRR, no murmur, no edema Musculoskeletal: Left knee: Valgus alignment. Tenderness lateral joint line. Positive Daniel's. Stable to valgus and varus stress. ROM 10-100 degrees. Skin: no rashes, warm and dry Neurologic: patellar DTR's 2+ bilat, sensation intact Psychiatric: A+Ox3, euthymic affect Principal Diagnosis Left knee osteoarthritis Discharge Exam Left leg: Dressing is clean, dry, intact. Mild drainage and Hemovac dressing site. Toes are mobile with good dorsiflexion. Able to do straight leg raise. No calf tenderness. Distally neurovascular status and sensation intact. Constitutional well developed and well nourished; no acute distress Discharge Data Allergies Allergy/AdvReac Type Severity Reaction Status Date / Time No Known Allergies Allergy Verified 03/13/22 05:46 Consultations 03/08/22 16:28 Consult Hospitalist Routine Procedures Performed Operation Date: 03/13/22 07:00 Actual Procedures p Left Total Knee Arthroplasty(Left) - Moises Posey MD Ordered Studies 03/13/22 05:00 US - OR guided needle placemen Routine Hospital Course (1) S/P total knee arthroplasty: POD#3 Left TKA -PT/OT -Pain management as written -DVT prophylaxis-SCDs, TEDs, Asprin 81mg twice daily -D/C planning-discharge home with Home health PT. Yesterday therapy was recomme nding inpatient rehab patient prefers to go home. Discharge was canceled yesterday. She is feeling much better today with her pain much better controlled. Still hoping to go home. We will see how she does in therapy and plan on discharge home. POD#2 Left TKA -PT/OT -Pain management as written -DVT prophylaxis-SCDs, TEDs, Asprin 81mg twice daily -D/C planning-discharge home with Home health PT. Plan on discharge home today after PT if doing well. POD#1 Left TKA -PT/OT -Pain management as written -AM labs-Pending -DVT prophylaxis-SCDs, TEDs, Asprin 81mg twice daily -D/C planning-discharge home with Home health PT. Plan on discharge likely tomorrow. Lab Results 03/13/03/14/22/ Range/Units Unknown 08:22 08:22 WBC 11.19 H (4.8-10.8) K/ul RBC 3.21 L (3.93-5.22) M/uL Hgb 9.3 L (12.0-16.0) g/dl Hct 28.3 L (34.1-44.9) % MCV 88.2 (80.0-100.0) fL MCH 29.0 (25.0-34.0) pg MCHC 32.9 (32.0-36.0) g/dL RDW Std Deviation 47.8 H (36.4-46.3) fL RDW Coeff of Nadira 14.8 H (11.5-14.5) % Plt Count 211 (130-400) K/uL MPV 11.0 (9.4-12.3) fL Sodium 143 (136-145) mmol/L Potassium 3.9 (3.5-5.1) mmol/L Chloride 110 H (98-107) mmol/L Carbon Dioxide 27 (21-32) mmol/L Anion Gap 6 (3-11) BUN 18 (6-23) mg/dl Creatinine 0.80 (0.6-1.2) mg/dl Est Cr Clr Drug Dosing 60.9 ml/min Est GFR ( Amer) 84.8 ml/min Est GFR (Non-Af Amer) 73.1 ml/min BUN/Creatinine Ratio 22.5 H (10-20) Glucose 88 (70-99(Fasting)) mg/dl Calcium 7.8 L (8.5-10.1) mg/dl SARS-CoV-2, RNA, NAAT NEGATIVE (NEGATIVE) Total Time Total Time Spent Total Time Spent (In Minutes): 20 Discharge Plan Discharge Items Patient Disposition: Home - Home Health Services Reason For Visit: Left Knee Osteoarthritis Discharge Diagnosis: Left knee osteoarthritis Activity: Per Instructions section Weightbearing: Left weightbearing Weightbearing Comment: As tolerated with walker Non-emergency contact: Surgeon Call non-emergency contact if: you have any medication questions, your pain is not controlled, you have a fever, your temperature is above 101.5, your wound has increased redness and your wound has increased drainage Follow-up/Referrals: Sylvia Shoemaker PA-C [Primary Care Provider] - Moises Posey MD [Surgeon] - (Follow-up with Dr. Posey in 2 weeks from the day of your surgery for your first postoperative visit.) Diet: Heart Healthy Addtl Attending Provider Instructions: ACTIVITY RECOMMENDATIONS: SELF CARE INSTRUCTIONS AFTER TOTAL KNEE REPLACEMENT A. You may need to continue a physical therapy program after discharge from the hospital. There are several options available to you. Your doctor will assist you in selecting the best one for you. 1. An out-patient facility 2 to 3 times a week for therapy or home therapy. 2. Continue working on all exercises taught to you in the hospital. Your goals should be to increase bending of your knee to 90 degrees and beyond and to fully straighten your knee. B. You may progress at your own pace from walking with a walker or crutches to a cane; then to no assistive devices. C. Make walking a part of your daily routine. Be up as much as comfortable with rest periods throughout the day. Rest with leg elevation is very important. Use the ice wrap frequently for the first 3-4 weeks. D. There are no restrictions on activities. You may ride in a car, shop, participate in director craft center and all social activities. E. Wear the long elastic stockings (BARBARA hose) 20 hours a day for 2 weeks after surgery. They can be removed several times a day for laundering and for a bath. F. You may shower, no tub baths until cleared by your doctor. SPECIAL CARE INSTRUCTIONS: VERY IMPORTANT TO READ AND REVIEW A. There are a few signs you need to watch for after you are home. Call [facility] if you notice any of the followin. Increased severe knee pain. Some pain is expected especially when you exercise. 2. Increased swelling in your leg or knee; pain or swelling of the calf muscle in either lower leg. 3. Any fluid drainage from the incision. 4. Shortness of breath or chest pain. B. Please call [facility] at if you have any concerns or questions about your operation or recovery. The doctor or his nurse will return your call promptly. C. You must take antibiotics before dental work, bladder, bowel or other surgery. Your doctor will provide you with a permanent care to carry describing this precaution. IMPORTANT: * REMEMBER TO TAKE ASPIRIN, 81 MG, TWICE DAILY FOR 4 WEEKS UNLESS OTHERWISE DIRECTED. THIS IS YOUR BLOOD THINNER. * HIGH RISK PATIENTS MAY BE PRESCRIBED A STRONGER BLOOD THINNER. THIS WILL BE PROVIDED AT DISCHARGE. * CALL IF INCREASED PAIN, REDNESS, DRAINAGE OR FEVER GREATER THAT 101. * WEAR BARBARA HOSE 20 HOURS PER DAY FOR 2 WEEKS. * KATY Dressing - This is a large suction dressing covering your incision. This will help pull any excess drainage from the wound and allow your incision to heal properly. You may shower with this if you can keep the unit outside of the shower. If any bleeding or leakage is noted please call your doctor's office. This will remain on your incision for 7 days and then should be removed. This can be done yourself or by the home nursing staff if applicable. The entire unit is disposable once removed. Once removed, keep incision clean and dry. If redness or drainage is noted, please call your surgeon. . FOLLOW UP VISIT: If appointment is not already scheduled: Please call [facility] to make a follow-up appointment for 2 weeks after your surgery at . 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 Torsemide should not be stopped. Pending Studies at Discharge: No Stand-Alone Forms: My [employer] Medications and DC Order Prescriptions: New acetaminophen [Tylenol Extra Strength] 500 mg Tablet 1,000 mg PO Q8 Qty: 60 0RF aspirin 81 mg Tablet,Delayed Release (Dr/Ec) 81 mg PO BID Qty: 60 0RF celecoxib [Celebrex] 200 mg Capsule 200 mg PO BID Qty: 60 0RF oxycodone 5 mg Tablet 5 - 10 mg PO .Q4h-6h MDD 6 PRN (Reason: pain) Qty: 30 0RF Rx Instructions: Ongoing therapy, Dr. Posey supervising Continued atorvastatin 20 mg Tablet 20 mg PO QAM lisinopril-hydrochlorothiazide 20-12.5 mg Tablet 1 tab PO QAM alprazolam 0.25 mg Tablet 1 - 2 tab PO BID PRN (Reason: Anxiety) pantoprazole 40 mg Tablet,Delayed Release (Dr/Ec) 40 mg PO BID docusate sodium [Dulcolax Stool Softener (dss)] 100 mg Capsule 2 tab PO QPM venlafaxine 150 mg Tablet Extended Release 24hr 150 mg PO QAM Azo Cranberry 250 mg Tablet,Chewable 2 tab PO QAM hydroxyzine HCl 25 mg Tablet 1 - 2 tab PO HS PRN (Reason: Sleep) anastrozole 1 mg Tablet 1 mg PO QAM cholecalciferol (vitamin D3) [Vitamin D3] 50 mcg (2,000 unit) Capsule 100 mcg PO QAM torsemide 10 mg tablet 10 mg PO DAILY Discontinued acetaminophen 500 mg capsule 1,000 mg PO Q8H Qty: 60 0RF meloxicam 15 mg tablet 15 mg PO DAILY torsemide 10 mg tablet 10 mg PO DAILY Discharge Orders: Discharge Order (Routine); Ordered 03/16/22 Ordered By: Dong Biggs Admission Data Admit Date/Time: 03/13/22 09:56 Attending Provider: Moises Posey Admit Provider: Moises Posey Primary Care Provider: Sylvia Shoemaker Other Providers: Heavenly Yanez ; Negin Morgan ; [facility]
== END 2022-03-16 13:55 | disposition home health service (06) ==
LOC: 3W 05:15 → ASU 05:15